=== PATIENT | female | born 1970 | race Caucasian/White ===

== ENCOUNTER 2018-08-06 10:18 | Outpatient (CLI) | payer OTHER ==
[2018-08-06 11:32] LABS: BASOPHILS # (AUTO) 0.1 X10'3 (0-0.2); EOSINOPHILS # (AUTO) 0.1 X10'3 (0-0.9); EOSINOPHILS % (AUTO) 1.5 % (0-6); HEMATOCRIT 38.9 % (35.0-45.0); HEMOGLOBIN 13.1 g/dl (12.0-16.0); LYMPHOCYTES # (AUTO) 1.8 X10'3 (1.1-4.8); LYMPHOCYTES % (AUTO) 23.7 % (21-51); MEAN CORPUSCULAR HEMOGLOBIN 31.2 PG (27.0-31.0); MEAN CORPUSCULAR HGB CONC 33.7 g/dL (33.0-36.5); MEAN CORPUSCULAR VOLUME 92.6 FL (78-98); MONOCYTES # (AUTO) 0.4 X10'3 (0-0.9); MONOCYTES % (AUTO) 5.4 % (2-12); NEUTROPHILS # (AUTO) 5.2 X10'3 (1.8-7.7); NEUTROPHILS % (AUTO) 68.4 % (42-75); PLATELET COUNT 359 X10'3 (140-440); RED CELL DISTRIBUTION WIDTH 12.8 % (11.5-14.5); WHITE BLOOD COUNT 7.6 X10'3 (4.5-11.0)
[2018-08-06 11:44] LABS: ALANINE AMINOTRANSFERASE 17 U/L (12-78); ALBUMIN 3.7 G/DL (3.4-5.0); ALKALINE PHOSPHATASE 49 IU/L (46-116); ANION GAP 7 (8-16); ASPARTATE AMINO TRANSFERASE 17 U/L (10-37); BILIRUBIN,TOTAL 0.6 MG/DL (0.1-1.0); BLOOD UREA NITROGEN 15 MG/DL (7-18); BUN/CREATININE RATIO 15.6 (6.6-38.0); CALCIUM 8.9 MG/DL (8.5-10.1); CHLORIDE 105 MMOL/L (99-107); CHOL/HDL RATIO 4.1 (0.00-4.99); CHOLESTEROL 172 MG/DL (0-200); CREATININE 0.96 MG/DL (0.40-0.90); GLUCOSE 96 MG/DL (70-104); HDL CHOLESTEROL 42 MG/DL (35-60); LDL CHOLESTEROL 120 MG/DL (50-100); POTASSIUM 4.2 MMOL/L (3.5-5.1); SODIUM 138 MMOL/L (135-145); TOTAL CARBON DIOXIDE 26.3 MMOL/L (24-32); TOTAL PROTEIN 7.4 G/DL (6.4-8.2); TRIGLYCERIDES 86 MG/DL (20-135); eGFR 62 ML/MIN
== END 2018-08-06 23:59 | disposition home or self-care (01) ==
LOC: LAB 10:18
PROVIDERS: ATTEND Nurse Practitioner
DX: Z00.00 Encounter for general adult medical examination without abnormal findings (principal); R10.9 Unspecified abdominal pain; E55.9 Vitamin D deficiency, unspecified; R63.5 Abnormal weight gain; Z87.891 Personal history of nicotine dependence
CPT/HCPCS: 36415; 80053; 80061; 82306; 84443; 85025

== ENCOUNTER 2018-08-20 10:37 | Outpatient (CLI) | payer OTHER | END 2018-08-20 23:59 | disposition home or self-care (01) | LOC: RAD 10:37 | PROVIDERS: ATTEND Nurse Practitioner | DX: R94.4 Abnormal results of kidney function studies (principal); R79.89 Other specified abnormal findings of blood chemistry | CPT/HCPCS: 76775 ==

== ENCOUNTER 2018-09-28 15:58 | Outpatient (CLI) | payer OTHER ==
[2018-09-28 16:37] LABS: BASOPHILS # (AUTO) 0.1 X10'3 (0-0.2); BASOPHILS % (AUTO) 0.8 % (0-1); EOSINOPHILS # (AUTO) 0.3 X10'3 (0-0.9); EOSINOPHILS % (AUTO) 2.7 % (0-6); HEMOGLOBIN 12.5 g/dl (12.0-16.0); LYMPHOCYTES # (AUTO) 2.5 X10'3 (1.1-4.8); LYMPHOCYTES % (AUTO) 25.5 % (21-51); MEAN CORPUSCULAR HEMOGLOBIN 31.4 PG (27.0-31.0); MEAN CORPUSCULAR HGB CONC 33.7 g/dL (33.0-36.5); MEAN CORPUSCULAR VOLUME 93.1 FL (78-98); MEAN PLATELET VOLUME 7.7 FL (7.4-10.4); MONOCYTES # (AUTO) 0.7 X10'3 (0-0.9); MONOCYTES % (AUTO) 7.1 % (2-12); NEUTROPHILS # (AUTO) 6.3 X10'3 (1.8-7.7); NEUTROPHILS % (AUTO) 63.9 % (42-75); PLATELET COUNT 351 X10'3 (140-440); RED BLOOD COUNT 3.97 X10'6 (4.20-5.60); RED CELL DISTRIBUTION WIDTH 13.1 % (11.5-14.5); WHITE BLOOD COUNT 9.9 X10'3 (4.5-11.0)
[2018-09-28 18:20] LABS: ALANINE AMINOTRANSFERASE 23 U/L (12-78); ALBUMIN 3.8 G/DL (3.4-5.0); ALBUMIN/GLOBULIN RATIO 1.1 (1.1-1.5); ALKALINE PHOSPHATASE 52 IU/L (46-116); ANION GAP 11 (8-16); ASPARTATE AMINO TRANSFERASE 22 U/L (10-37); BILIRUBIN,TOTAL 0.6 MG/DL (0.1-1.0); BLOOD UREA NITROGEN 17 MG/DL (7-18); CALCIUM 9.4 MG/DL (8.5-10.1); CHLORIDE 103 MMOL/L (99-107); CREATININE 1.06 MG/DL (0.40-0.90); GLUCOSE 101 MG/DL (70-104); POTASSIUM 3.8 MMOL/L (3.5-5.1); SODIUM 138 MMOL/L (135-145); TOTAL CARBON DIOXIDE 24.5 MMOL/L (24-32); TOTAL PROTEIN 7.3 G/DL (6.4-8.2); eGFR 56 ML/MIN
[2018-09-30 08:06] LABS: FSH, SERUM 6.6 mIU/mL (.); LUTEINIZING HORMONE 8.1 mIU/mL (.); PROLACTIN 34.3 ng/mL (4.8-23.3)
== END 2018-09-28 23:59 | disposition home or self-care (01) ==
LOC: LAB 15:58
PROVIDERS: ATTEND Obstetrics & Gynecology
DX: R10.2 Pelvic and perineal pain (principal); Z87.891 Personal history of nicotine dependence
CPT/HCPCS: 36415; 80053; 82670; 82679; 83001; 83002; 84146; 84439; 84443; 85025

== ENCOUNTER 2018-10-08 11:19 | Outpatient (CLI) | payer OTHER ==
[2018-10-08 11:52] LABS: BASOPHILS # (AUTO) 0.1 X10'3 (0-0.2); EOSINOPHILS # (AUTO) 0.2 X10'3 (0-0.9); EOSINOPHILS % (AUTO) 2.9 % (0-6); HEMATOCRIT 39.2 % (35.0-45.0); HEMOGLOBIN 13.3 g/dl (12.0-16.0); LYMPHOCYTES # (AUTO) 2.2 X10'3 (1.1-4.8); LYMPHOCYTES % (AUTO) 28.8 % (21-51); MEAN CORPUSCULAR HEMOGLOBIN 31.7 PG (27.0-31.0); MEAN CORPUSCULAR VOLUME 93.3 FL (78-98); MEAN PLATELET VOLUME 7.8 FL (7.4-10.4); MONOCYTES # (AUTO) 0.4 X10'3 (0-0.9); MONOCYTES % (AUTO) 5.6 % (2-12); NEUTROPHILS # (AUTO) 4.7 X10'3 (1.8-7.7); NEUTROPHILS % (AUTO) 61.7 % (42-75); PLATELET COUNT 430 X10'3 (140-440); WHITE BLOOD COUNT 7.7 X10'3 (4.5-11.0)
[2018-10-08 12:10] LABS: ALANINE AMINOTRANSFERASE 18 U/L (12-78); ALBUMIN/GLOBULIN RATIO 1.1 (1.1-1.5); ALKALINE PHOSPHATASE 50 IU/L (46-116); ANION GAP 7 (8-16); ASPARTATE AMINO TRANSFERASE 19 U/L (10-37); BILIRUBIN,TOTAL 0.5 MG/DL (0.1-1.0); BLOOD UREA NITROGEN 9 MG/DL (7-18); BUN/CREATININE RATIO 9.6 (6.6-38.0); CALCIUM 8.9 MG/DL (8.5-10.1); CHLORIDE 104 MMOL/L (99-107); CREATININE 0.94 MG/DL (0.40-0.90); GLUCOSE 97 MG/DL (70-104); POTASSIUM 3.8 MMOL/L (3.5-5.1); SODIUM 139 MMOL/L (135-145); TOTAL CARBON DIOXIDE 27.9 MMOL/L (24-32); TOTAL PROTEIN 7.7 G/DL (6.4-8.2); eGFR 64 ML/MIN
[2018-10-08 12:29] LABS: TOTAL PROTEIN,URINE RANDOM < 6.0 MG/DL
== END 2018-10-08 23:59 | disposition home or self-care (01) ==
LOC: LAB 11:19
PROVIDERS: ATTEND Internal Medicine
DX: N18.2 Chronic kidney disease, stage 2 (mild) (principal); D63.1 Anemia in chronic kidney disease; R80.9 Proteinuria, unspecified
CPT/HCPCS: 36415; 80053; 82570; 84156; 85025

== ENCOUNTER 2018-10-09 12:57 | Outpatient (CLI) | payer OTHER | END 2018-10-09 23:59 | disposition home or self-care (01) | LOC: RAD 12:57 | PROVIDERS: ATTEND Obstetrics & Gynecology | DX: N83.01 Follicular cyst of right ovary (principal) | CPT/HCPCS: 76830; 76856 ==

== ENCOUNTER 2018-10-30 10:55 | Outpatient (CLI) | payer OTHER ==
[2018-10-30 12:08] LABS: CLARITY,URINE CLEAR (Clear); COLOR,URINE STRAW (Yellow); GLUCOSE, URINE NEGATIVE (Neg); KETONES,URINE NEGATIVE (Neg); LEUKOCYTE ESTERASE ,URINE NEGATIVE (Neg); NITRITES, URINE NEGATIVE (Neg); OCCULT BLOOD,URINE TRACE-INTACT (Neg); PH,URINE 5.5 (4.8-8.0); PROTEIN,URINE NEGATIVE (Neg); UROBILINOGEN,URINE 0.2 E.U/dL (0.2-1.0)
[2018-10-30 12:10] LABS: UA COLLECTION TYPE CLN CATCH MIDSTREAM
[2018-10-30 12:22] LABS: % IRON SATURATION 23 % (11-46); IRON 95 UG/DL (49-151); TOTAL IRON BINDING CAPACITY 406 UG/DL (259-388)
[2018-10-30 12:23] LABS: SQUAMOUS EPITHELIAL CELL,UR FEW /LPF (FEW)
[2018-10-30 12:24] LABS: BACTERIA,URINE NONE SEEN /HPF (Neg); RBC,URINE 0-2 /HPF (0-2); WBC,URINE NONE SEEN /HPF (0-4)
[2018-10-30 12:25] LABS: TOTAL PROTEIN,URINE RANDOM < 6.0 MG/DL
[2018-10-30 12:35] LABS: FERRITIN 44 NG/ML (8-252)
[2018-10-31 18:18] LABS: ANTI-DSDNA ANTIBODIES <1 IU/mL (0-9); ANTINUCLEAR ANTIBODIES Negative (Negative)
[2018-11-01 07:16] LABS: COMPLEMENT C3, SERUM 146 mg/dL (82-167); COMPLEMENT C4, SERUM 26 mg/dL (14-44)
[2018-11-01 15:08] LABS: ATYPICAL PANCA <1:20 titer (Neg:<1:20); CYTOPLASMIC (C-ANCA) <1:20 titer (Neg:<1:20); PERINUCLEAR (P-ANCA) <1:20 titer (Neg:<1:20)
== END 2018-10-30 23:59 | disposition home or self-care (01) ==
LOC: VAS 10:55
PROVIDERS: ATTEND Internal Medicine
DX: N18.2 Chronic kidney disease, stage 2 (mild) (principal); E55.9 Vitamin D deficiency, unspecified; R76.0 Raised antibody titer; I77.6 Arteritis, unspecified; M06.9 Rheumatoid arthritis, unspecified; M32.10 Systemic lupus erythematosus, organ or system involvement unspecified; R82.90 Unspecified abnormal findings in urine; R80.9 Proteinuria, unspecified; Z87.891 Personal history of nicotine dependence
CPT/HCPCS: 81001; 82570; 82728; 83540; 83550; 84156; 86038; 86160; 86256; 93975

== ENCOUNTER 2019-01-07 09:42 | Outpatient (CLI) | payer OTHER | END 2019-01-07 23:59 | disposition home or self-care (01) | LOC: RAD 09:42 | PROVIDERS: ATTEND Family Medicine | DX: R10.9 Unspecified abdominal pain (principal); Z87.891 Personal history of nicotine dependence | CPT/HCPCS: 76700 ==

== ENCOUNTER 2019-01-22 08:53 | Outpatient (CLI) | payer OTHER ==
[~2019-01-22] VITALS: Ht 165.1 cm; Wt 94.1 kg
[2019-01-22] MEDS ORDERED: NORMAL SALINE IV ONE (09:45)
[2019-01-22] MEDS ORDERED: SINCALIDE IV ONE (09:45)
== END 2019-01-22 23:59 | disposition home or self-care (01) ==
LOC: RAD 08:53
PROVIDERS: ATTEND Family Medicine
DX: R10.9 Unspecified abdominal pain (principal); Z87.891 Personal history of nicotine dependence
CPT/HCPCS: 78227; A9537; J2805

== ENCOUNTER 2019-02-25 12:46 | Day surgery (SDC) | payer OTHER ==
[~2019-02-25] VITALS: Ht 175.3 cm; Wt 94.1 kg
[2019-02-25] MEDS ORDERED: MIDAZolam 5mg/5ml vial ONE ×3 (12:58→13:02)
[2019-02-25] MEDS ORDERED: fentaNYL/PF 50MCG/1 ML 2ML syringe ONE ×2 (12:58→14:03)
[2019-02-25] MEDS ORDERED: LIDOcaine Viscous 15ml cup ONE (12:59)
[2019-02-25 13:00] VITALS: BP 142/86
[2019-02-25 14:24] VITALS: BP 115/70
[2019-02-25 14:29] VITALS: BP 112/66
[2019-02-25] MEDS ORDERED: NO HOME MEDS (14:32)
[2019-02-25 14:39] VITALS: BP 111/57
[2019-02-25 14:49] VITALS: BP 120/72
== END 2019-02-25 15:05 | disposition home or self-care (01) ==
LOC: GI LAB 12:46
PROVIDERS: ATTEND Internal Medicine Gastroenterology
DX: K63.5 Polyp of colon (principal); K64.8 Other hemorrhoids; K22.8 Other specified diseases of esophagus; K29.50 Unspecified chronic gastritis without bleeding; K20.8 Other esophagitis
CPT/HCPCS: 43239; 45385; 99152; 99153; C1773; J2250; J3010; J7040; A4620

== ENCOUNTER 2019-03-20 15:47 | Outpatient (CLI) | payer OTHER ==
[~2019-03-20 15:47] MED LIST: NO HOME MEDS
[2019-03-20 19:14] LABS: BASOPHILS # (AUTO) 0.1 X10'3 (0-0.2); BASOPHILS % (AUTO) 0.9 % (0-1); EOSINOPHILS # (AUTO) 0.3 X10'3 (0-0.9); EOSINOPHILS % (AUTO) 2.6 % (0-6); HEMATOCRIT 38.3 % (35.0-45.0); HEMOGLOBIN 12.9 g/dl (12.0-16.0); LYMPHOCYTES # (AUTO) 3.4 X10'3 (1.1-4.8); LYMPHOCYTES % (AUTO) 27.4 % (21-51); MEAN CORPUSCULAR HEMOGLOBIN 31.2 PG (27.0-31.0); MEAN CORPUSCULAR HGB CONC 33.6 g/dL (33.0-36.5); MEAN CORPUSCULAR VOLUME 92.9 FL (78-98); MEAN PLATELET VOLUME 7.7 FL (7.4-10.4); MONOCYTES # (AUTO) 0.6 X10'3 (0-0.9); NEUTROPHILS % (AUTO) 64.1 % (42-75); PLATELET COUNT 421 X10'3 (140-440); RED BLOOD COUNT 4.12 X10'6 (4.20-5.60); RED CELL DISTRIBUTION WIDTH 12.6 % (11.5-14.5); WHITE BLOOD COUNT 12.5 X10'3 (4.5-11.0)
[2019-03-20 19:27] LABS: ANION GAP 8 (8-16); BLOOD UREA NITROGEN 14 MG/DL (7-18); BUN/CREATININE RATIO 14.3 (6.6-38.0); CALCIUM 10.2 MG/DL (8.5-10.1); CHLORIDE 102 MMOL/L (99-107); CREATININE 0.98 MG/DL (0.40-0.90); GLUCOSE 108 MG/DL (70-104); PHOSPHORUS 5.3 MG/DL (2.3-4.5); POTASSIUM 3.8 MMOL/L (3.5-5.1); SODIUM 138 MMOL/L (135-145); eGFR 61 ML/MIN
[2019-03-25 13:20] LABS: VITAMIN D, 1,25 DIHYDROXY 43.4 pg/mL (19.9-79.3)
== END 2019-03-20 23:59 | disposition home or self-care (01) ==
LOC: LAB 15:47
PROVIDERS: ATTEND Internal Medicine Critical Care Medicine
DX: R82.79 Other abnormal findings on microbiological examination of urine (principal); R94.4 Abnormal results of kidney function studies; R80.9 Proteinuria, unspecified; E55.9 Vitamin D deficiency, unspecified; D63.1 Anemia in chronic kidney disease; N18.2 Chronic kidney disease, stage 2 (mild)
CPT/HCPCS: 36415; 80069; 82043; 82570; 82652; 85025

== ENCOUNTER 2020-01-02 12:24 | Outpatient (CLI) | payer BC ==
[2020-01-02 12:56] LABS: BASOPHILS # (AUTO) 0.1 X10'3 (0-0.2); BASOPHILS % (AUTO) 1.1 % (0-1); EOSINOPHILS # (AUTO) 0.2 X10'3 (0-0.9); EOSINOPHILS % (AUTO) 2.6 % (0-6); HEMATOCRIT 37.3 % (35.0-45.0); HEMOGLOBIN 12.6 g/dl (12.0-16.0); LYMPHOCYTES # (AUTO) 2.6 X10'3 (1.1-4.8); LYMPHOCYTES % (AUTO) 32.4 % (21-51); MEAN CORPUSCULAR HEMOGLOBIN 31.5 PG (27.0-31.0); MEAN CORPUSCULAR HGB CONC 33.9 g/dL (33.0-36.5); MEAN CORPUSCULAR VOLUME 92.9 FL (78-98); MEAN PLATELET VOLUME 7.3 FL (7.4-10.4); MONOCYTES # (AUTO) 0.5 X10'3 (0-0.9); MONOCYTES % (AUTO) 5.7 % (2-12); NEUTROPHILS # (AUTO) 4.7 X10'3 (1.8-7.7); NEUTROPHILS % (AUTO) 58.2 % (42-75); PLATELET COUNT 468 X10'3 (140-440); RED BLOOD COUNT 4.02 X10'6 (4.20-5.60); RED CELL DISTRIBUTION WIDTH 12.9 % (11.5-14.5)
[2020-01-02 12:59] LABS: CLARITY,URINE CLEAR (Clear); COLOR,URINE YELLOW (Yellow); GLUCOSE, URINE NEGATIVE (Neg); KETONES,URINE NEGATIVE (Neg); LEUKOCYTE ESTERASE ,URINE NEGATIVE (Neg); NITRITES, URINE NEGATIVE (Neg); OCCULT BLOOD,URINE NEGATIVE (Neg); PH,URINE 5.5 (4.8-8.0); PROTEIN,URINE NEGATIVE (Neg); UROBILINOGEN,URINE 0.2 E.U/dL (0.2-1.0)
[2020-01-02 13:03] LABS: UA COLLECTION TYPE CLN CATCH MIDSTREAM
[2020-01-02 13:19] LABS: ALANINE AMINOTRANSFERASE 20 U/L (12-78); ALBUMIN 3.8 G/DL (3.4-5.0); ALKALINE PHOSPHATASE 50 IU/L (46-116); ANION GAP 7 (8-16); ASPARTATE AMINO TRANSFERASE 19 U/L (10-37); BILIRUBIN,TOTAL 0.4 MG/DL (0.1-1.0); BLOOD UREA NITROGEN 14 MG/DL (7-18); CALCIUM 8.9 MG/DL (8.5-10.1); CHLORIDE 103 MMOL/L (99-107); CREATININE 1.08 MG/DL (0.40-0.90); GLUCOSE 94 MG/DL (70-104); POTASSIUM 3.9 MMOL/L (3.5-5.1); SODIUM 137 MMOL/L (135-145); TOTAL PROTEIN 7.5 G/DL (6.4-8.2); eGFR 54 ML/MIN
== END 2020-01-02 23:59 | disposition home or self-care (01) ==
LOC: LAB 12:24
PROVIDERS: ATTEND Family Medicine
DX: D64.9 Anemia, unspecified (principal); E22.1 Hyperprolactinemia; N28.9 Disorder of kidney and ureter, unspecified; R10.9 Unspecified abdominal pain
CPT/HCPCS: 36415; 80053; 81003; 84439; 84443; 85025

== ENCOUNTER 2020-01-14 10:07 | Outpatient (CLI) | payer BC ==
[~2020-01-14] VITALS: Ht 165.1 cm; Wt 90.9 kg
[2020-01-14] MEDS ORDERED: NORMAL SALINE IV ONE (11:45)
[2020-01-14] MEDS ORDERED: SINCALIDE IV ONE (11:45)
== END 2020-01-14 23:59 | disposition home or self-care (01) ==
LOC: RAD 10:07
PROVIDERS: ATTEND Family Medicine
DX: K83.5 Biliary cyst (principal)
CPT/HCPCS: 78227; A9537; J2805

== ENCOUNTER → 2020-03-17 | Outpatient (CLI) | payer BC ==
[2020-03-17 12:38] LABS: BASOPHILS # (AUTO) 0.1 X10'3 (0-0.2); BASOPHILS % (AUTO) 0.9 % (0-1); EOSINOPHILS # (AUTO) 0.2 X10'3 (0-0.9); EOSINOPHILS % (AUTO) 2.3 % (0-6); HEMOGLOBIN 13.3 g/dl (12.0-16.0); LYMPHOCYTES # (AUTO) 2.1 X10'3 (1.1-4.8); LYMPHOCYTES % (AUTO) 23.9 % (21-51); MEAN CORPUSCULAR HEMOGLOBIN 30.9 PG (27.0-31.0); MEAN CORPUSCULAR HGB CONC 33.2 g/dL (33.0-36.5); MEAN CORPUSCULAR VOLUME 93.1 FL (78-98); MEAN PLATELET VOLUME 7.9 FL (7.4-10.4); MONOCYTES # (AUTO) 0.4 X10'3 (0-0.9); NEUTROPHILS # (AUTO) 5.9 X10'3 (1.8-7.7); NEUTROPHILS % (AUTO) 67.9 % (42-75); PLATELET COUNT 447 X10'3 (140-440); WHITE BLOOD COUNT 8.7 X10'3 (4.5-11.0)
[2020-03-17 12:46] LABS: ANION GAP 6 (8-16); BLOOD UREA NITROGEN 14 MG/DL (7-18); BUN/CREATININE RATIO 14.3 (6.6-38.0); CALCIUM 9.2 MG/DL (8.5-10.1); CHLORIDE 104 MMOL/L (99-107); CREATININE 0.98 MG/DL (0.40-0.90); GLUCOSE 99 MG/DL (70-104); PHOSPHORUS 3.8 MG/DL (2.3-4.5); POTASSIUM 4.1 MMOL/L (3.5-5.1); SODIUM 136 MMOL/L (135-145); TOTAL CARBON DIOXIDE 26.3 MMOL/L (24-32); eGFR 60 ML/MIN
[2020-03-17 13:54] LABS: TOTAL PROTEIN,URINE RANDOM < 6.0 MG/DL
[2020-03-18 12:01] LABS: MICROALB/CRT, RATIO <6 mg/g creat (0-29)
== END | disposition home or self-care (01) ==
LOC: LAB 11:39
PROVIDERS: ATTEND Internal Medicine Critical Care Medicine
DX: E11.22 Type 2 diabetes mellitus with diabetic chronic kidney disease (principal); D63.1 Anemia in chronic kidney disease; N18.2 Chronic kidney disease, stage 2 (mild); E83.52 Hypercalcemia; E83.30 Disorder of phosphorus metabolism, unspecified; R94.4 Abnormal results of kidney function studies; R80.9 Proteinuria, unspecified; R82.79 Other abnormal findings on microbiological examination of urine
CPT/HCPCS: 36415; 80069; 82043; 82306; 82570; 83970; 84156; 85025

== ENCOUNTER 2020-05-06 07:27 | Outpatient (CLI) | payer BC | END 2020-05-06 23:59 | disposition home or self-care (01) | LOC: RAD 07:27 | PROVIDERS: ATTEND Internal Medicine Critical Care Medicine | DX: N18.2 Chronic kidney disease, stage 2 (mild) (principal); R93.41 Abnormal radiologic findings on diagnostic imaging of renal pelvis, ureter, or bladder | CPT/HCPCS: 76775 ==

== ENCOUNTER 2020-05-14 12:13 | Outpatient (CLI) | payer BC | END 2020-05-14 23:59 | disposition home or self-care (01) | LOC: RAD 12:13 | PROVIDERS: ATTEND Family Medicine | DX: M77.31 Calcaneal spur, right foot (principal) | CPT/HCPCS: 73610; 73630 ==

== ENCOUNTER → 2020-05-20 | Outpatient (CLI) | payer BC | END | disposition home or self-care (01) | LOC: VAS 07:47 | PROVIDERS: ATTEND Internal Medicine Gastroenterology | DX: R10.9 Unspecified abdominal pain (principal) | CPT/HCPCS: 76700; 93975 ==

== ENCOUNTER 2020-07-10 11:35 | Outpatient (CLI) | payer BC ==
[2020-07-10 12:18] LABS: ALBUMIN 3.8 G/DL (3.4-5.0); ANION GAP 7 (8-16); BLOOD UREA NITROGEN 13 MG/DL (7-18); BUN/CREATININE RATIO 13.8 (6.6-38.0); CALCIUM 8.9 MG/DL (8.5-10.1); CHLORIDE 104 MMOL/L (99-107); CREATININE 0.94 MG/DL (0.40-0.90); GLUCOSE 98 MG/DL (70-104); POTASSIUM 4.3 MMOL/L (3.5-5.1); SODIUM 138 MMOL/L (135-145); eGFR 63 ML/MIN
== END 2020-07-10 23:59 | disposition home or self-care (01) ==
LOC: LAB 11:35
PROVIDERS: ATTEND Family Medicine
DX: N28.9 Disorder of kidney and ureter, unspecified (principal)
CPT/HCPCS: 36415; 80048

== ENCOUNTER 2020-08-03 08:47 | Outpatient (CLI) | payer BC ==
[2020-08-03] MEDS ORDERED: iohexol 300mg/ml 100ml inj. ONE (09:16)
== END 2020-08-03 23:59 | disposition home or self-care (01) ==
LOC: 64 CT 08:47
PROVIDERS: ATTEND Family Medicine
DX: N28.89 Other specified disorders of kidney and ureter (principal)
CPT/HCPCS: 74178; Q9967

== ENCOUNTER 2021-03-05 08:08 | Outpatient (CLI) | payer BC | END 2021-03-05 23:59 | disposition home or self-care (01) | LOC: LAB 08:08 | PROVIDERS: ATTEND Family Medicine | DX: R10.2 Pelvic and perineal pain (principal); Z53.21 Procedure and treatment not carried out due to patient leaving prior to being seen by health care provider ==

== ENCOUNTER 2021-03-18 07:30 | Outpatient (CLI) | payer BC ==
[2021-03-18 08:22] LABS: BASOPHILS # (AUTO) 0.1 X10'3 (0-0.2); BASOPHILS % (AUTO) 0.9 % (0-1); EOSINOPHILS # (AUTO) 0.2 X10'3 (0-0.9); EOSINOPHILS % (AUTO) 2.5 % (0-6); HEMATOCRIT 36.4 % (35.0-45.0); HEMOGLOBIN 12.5 g/dl (12.0-16.0); LYMPHOCYTES # (AUTO) 1.9 X10'3 (1.1-4.8); MEAN CORPUSCULAR HEMOGLOBIN 31.4 PG (27.0-31.0); MEAN CORPUSCULAR HGB CONC 34.4 g/dL (33.0-36.5); MEAN CORPUSCULAR VOLUME 91.3 FL (78-98); MEAN PLATELET VOLUME 7.7 FL (7.4-10.4); MONOCYTES # (AUTO) 0.4 X10'3 (0-0.9); MONOCYTES % (AUTO) 5.7 % (2-12); NEUTROPHILS # (AUTO) 4.6 X10'3 (1.8-7.7); NEUTROPHILS % (AUTO) 63.9 % (42-75); PLATELET COUNT 364 X10'3 (140-440); RED BLOOD COUNT 3.98 X10'6 (4.20-5.60); RED CELL DISTRIBUTION WIDTH 12.8 % (11.5-14.5); WHITE BLOOD COUNT 7.1 X10'3 (4.5-11.0)
[2021-03-18 08:47] LABS: ALANINE AMINOTRANSFERASE 21 U/L (12-78); ALBUMIN 3.6 G/DL (3.4-5.0); ALBUMIN/GLOBULIN RATIO 0.9 (1.1-1.5); ALKALINE PHOSPHATASE 61 IU/L (46-116); ANION GAP 10 (8-16); ASPARTATE AMINO TRANSFERASE 14 U/L (10-37); BILIRUBIN,TOTAL 0.5 MG/DL (0.1-1.0); BLOOD UREA NITROGEN 12 MG/DL (7-18); BUN/CREATININE RATIO 13.5 (6.6-38.0); C-REACTIVE PROTEIN 0.17 MG/DL (0.0-0.5); CALCIUM 8.7 MG/DL (8.5-10.1); CHLORIDE 106 MMOL/L (99-107); CHOL/HDL RATIO 4.1 (0.00-4.99); CHOLESTEROL 169 MG/DL (0-200); CREATININE 0.89 MG/DL (0.40-0.90); GLUCOSE 97 MG/DL (70-104); HDL CHOLESTEROL 41 MG/DL (35-60); LDL CHOLESTEROL 104 MG/DL (50-100); POTASSIUM 4.2 MMOL/L (3.5-5.1); SODIUM 140 MMOL/L (135-145); TOTAL CARBON DIOXIDE 23.8 MMOL/L (24-32); TOTAL PROTEIN 7.4 G/DL (6.4-8.2); TRIGLYCERIDES 240 MG/DL (20-135); eGFR 67 ML/MIN
== END 2021-03-18 23:59 | disposition home or self-care (01) ==
LOC: LAB 07:30
PROVIDERS: ATTEND Family Medicine
DX: Z00.01 Encounter for general adult medical examination with abnormal findings (principal); E78.5 Hyperlipidemia, unspecified; E78.6 Lipoprotein deficiency; R10.2 Pelvic and perineal pain; R10.11 Right upper quadrant pain; N89.8 Other specified noninflammatory disorders of vagina
CPT/HCPCS: 36415; 80053; 80061; 84439; 84443; 85025; 85651; 86140

== ENCOUNTER 2021-08-27 07:19 | Outpatient (CLI) | payer BC | END 2021-08-27 23:59 | disposition home or self-care (01) | LOC: RAD 07:19 | PROVIDERS: ATTEND Physician Assistant | DX: N88.8 Other specified noninflammatory disorders of cervix uteri (principal); N92.0 Excessive and frequent menstruation with regular cycle | CPT/HCPCS: 76830; 76856; 93976 ==

== ENCOUNTER 2021-08-31 12:41 | Outpatient (CLI) | payer BC | END 2021-08-31 23:59 | disposition home or self-care (01) | LOC: 64 CT 12:41 | PROVIDERS: ATTEND Physician Assistant | DX: N20.0 Calculus of kidney (principal); D17.71 Benign lipomatous neoplasm of kidney | CPT/HCPCS: 74176 ==

== ENCOUNTER 2021-10-01 21:39 | Emergency (ER) | payer BC ==
[~2021-10-01] VITALS: Ht 162.6 cm; Wt 93.2 kg
[2021-10-01] MEDS ORDERED: ondansetron 4mg rapidly disintigrating tab PO ONE (23:20)
[2021-10-01] MEDS ORDERED: HYDROcodone/acetaminophen 5mg/325mg tablet PO ONE ×2 (23:20→23:40)
[2021-10-01] MEDS ORDERED: ketorolac trometh inj. 60 MG/2 ML VIAL IM ONE (23:20)
[2021-10-01] MEDS ORDERED: HYDR-3965 PO (23:40)
[2021-10-02 00:07] VITALS: BP 124/78
== END 2021-10-02 00:09 | disposition home or self-care (01) ==
LOC: ER 21:40
DX: S82.202A Unspecified fracture of shaft of left tibia, initial encounter for closed fracture (principal); S82.402A Unspecified fracture of shaft of left fibula, initial encounter for closed fracture; X58.XXXA Exposure to other specified factors, initial encounter; Y93.89 Activity, other specified; Y92.89 Other specified places as the place of occurrence of the external cause; Y99.8 Other external cause status
CPT/HCPCS: 29515; 73610; 96372; 99284; J1885

== ENCOUNTER 2021-10-06 15:45 | Emergency (ER) | payer BC ==
[~2021-10-06] VITALS: Ht 165.1 cm; Wt 93.2 kg
[~2021-10-06 15:45] MED LIST changes: +HYDR-3965 PO
[2021-10-06 16:09] VITALS: BP 138/89
== END 2021-10-06 18:15 | disposition home or self-care (01) ==
LOC: EEVIPCON 15:45 → ER 15:45
DX: L89.621 Pressure ulcer of left heel, stage 1 (principal); S82.202D Unspecified fracture of shaft of left tibia, subsequent encounter for closed fracture with routine healing; Z87.81 Personal history of (healed) traumatic fracture; Z79.899 Other long term (current) drug therapy; X58.XXXD Exposure to other specified factors, subsequent encounter
CPT/HCPCS: 99284

== ENCOUNTER 2021-10-22 05:14 | Day surgery (SDC) | payer BC ==
[2021-10-15 15:18] LABS: BASOPHILS # (AUTO) 0.1 X10'3 (0-0.2); EOSINOPHILS # (AUTO) 0.1 X10'3 (0-0.9); EOSINOPHILS % (AUTO) 1.7 % (0-6); LYMPHOCYTES # (AUTO) 2.2 X10'3 (1.1-4.8); LYMPHOCYTES % (AUTO) 29.4 % (21-51); MEAN CORPUSCULAR HEMOGLOBIN 30.4 PG (27.0-31.0); MEAN CORPUSCULAR HGB CONC 33.1 g/dL (33.0-36.5); MEAN PLATELET VOLUME 7.5 FL (7.4-10.4); MONOCYTES # (AUTO) 0.4 X10'3 (0-0.9); MONOCYTES % (AUTO) 5.7 % (2-12); NEUTROPHILS # (AUTO) 4.7 X10'3 (1.8-7.7); NEUTROPHILS % (AUTO) 62.2 % (42-75); PRE OP HEMOGLOBIN 13.2 g/dL (12.0-16.0); PRE OP PLATELET COUNT 532 X10'3 (140-440); RED BLOOD COUNT 4.34 X10'6 (4.20-5.60); RED CELL DISTRIBUTION WIDTH 13.8 % (11.5-14.5)
[2021-10-15 15:22] LABS: CLARITY,URINE CLEAR (Clear); COLOR,URINE YELLOW (Yellow); GLUCOSE, URINE NEGATIVE (Neg); KETONES,URINE TRACE mg/dl (Neg); LEUKOCYTE ESTERASE ,URINE NEGATIVE (Neg); NITRITES, URINE NEGATIVE (Neg); OCCULT BLOOD,URINE TRACE-INTACT (Neg); PH,URINE 5.5 (4.8-8.0); PROTEIN,URINE NEGATIVE (Neg); UA COLLECTION TYPE CLN CATCH MIDSTREAM; UROBILINOGEN,URINE 0.2 E.U/dL (0.2-1.0)
[2021-10-15 15:25] LABS: ALBUMIN 3.7 G/DL (3.4-5.0); ALBUMIN/GLOBULIN RATIO 0.9 (1.1-1.5); ALKALINE PHOSPHATASE 54 IU/L (46-116); BLOOD UREA NITROGEN 15 MG/DL (7-18); BUN/CREATININE RATIO 15.6 (6.6-38.0); CALCIUM 8.9 MG/DL (8.5-10.1); CHLORIDE 102 MMOL/L (99-107); CREATININE 0.96 MG/DL (0.40-0.90); PRE OP ALT 27 U/L (30-65); PRE OP ANION GAP 9 (8-16); PRE OP AST 29 U/L (10-37); PRE OP BILIRUB, TOTAL 0.6 MG/DL (0.0-1.0); PRE OP GLUCOSE 101 MG/DL (70-104); PRE OP POTASSIUM 3.7 MMOL/L (3.4-5.1); PRE OP SODIUM 137 MMOL/L (135-145); TOTAL CARBON DIOXIDE 26.4 MMOL/L (24-32); TOTAL PROTEIN 7.7 G/DL (6.4-8.2); eGFR 62 ML/MIN
[2021-10-15 15:30] LABS: BACTERIA,URINE NONE SEEN /HPF (Neg); MUCUS STRANDS NONE SEEN /LPF (Neg); RBC,URINE NONE SEEN /HPF (0-2); SQUAMOUS EPITHELIAL CELL,UR FEW /LPF (FEW); WBC,URINE 0-4 /HPF (0-4)
[2021-10-22] VITALS (12 sets, daily range): BP systolic 124–159; BP diastolic 74–89
[~2021-10-22] VITALS: Ht 165.1 cm; Wt 90.1 kg
[~2021-10-22 05:14] MED LIST changes: +CHOL20004 PO; +HYDR-3964 PO; -HYDR-3965 PO; +LACT1CAP65 PO; +MULT-1085 PO; -NO HOME MEDS; +TUMERIC; +ringers solution, lacted 1,000 ML IV SCH
[2021-10-22] MEDS ORDERED: ceFAZolin inj. 2,000 MG in dextrose 5%-water 100 ML IV ONE (05:30)
[2021-10-22] MEDS ORDERED: famotidine 20mg tablet PO ONE (05:30)
[2021-10-22] MEDS ORDERED: bacitracin 15gm ointment TP ONE (06:45)
[2021-10-22] MEDS ORDERED: BUPIVAcaine 0.5% inj/PF 30 ML ONE (06:45)
[2021-10-22] MEDS ORDERED: cloNIDine hcl/PF 100mcg/ml inj ONE (07:13)
[2021-10-22] MEDS ORDERED: fentaNYL/PF 50MCG/1 ML 2ML syringe ONE ×2 (07:14→08:10)
[2021-10-22] MEDS ORDERED: sevoflurane 250ml liquid IH ONE (07:15)
[2021-10-22] MEDS ORDERED: midazolam 1 mg/ML 2ml injection ONE ×2 (07:15)
[2021-10-22] MEDS ORDERED: ROPIVAcaine 0.2%/PF PUMP/bolus 545 ML POPLITEAL SCH (08:15)
[2021-10-22] MEDS ORDERED: meperidine/PF 25mg/ml syringe IV PRN ×3 (08:15)
[2021-10-22] MEDS ORDERED: proCHLORperazine 10 MG/2 ml inj IV PRN (08:15)
[2021-10-22] MEDS ORDERED: ondansetron/PF 4mg/2ml inj IV PRN (08:15)
[2021-10-22] MEDS ORDERED: ROPIVAcaine 0.2% (10 MG/5 ML) BOLUS INJECTION POPLITEAL PRN (08:15)
[2021-10-22] MEDS ORDERED: ringers solution, lacted 1,000 ML IV SCH (08:15)
[2021-10-22] MEDS ORDERED: morphine 2 MG/ML inj. syringe IV PRN (08:15)
[2021-10-22] MEDS ORDERED: BUPIVAcaine 0.5% inj/PF 30 ml vial IJ ONE (08:30)
[2021-10-22] MEDS ORDERED: neostigmine methylsulfate 1 MG/ML 10ml vial ONE (09:07)
[2021-10-22] MEDS ORDERED: rocuronium 10mg/ml inj IV ONE (09:07)
[2021-10-22] MEDS ORDERED: ondansetron/PF 4mg/2ml inj ONE (09:07)
[2021-10-22] MEDS ORDERED: propofol inj 20 ML IV ONE (09:07)
[2021-10-22] MEDS ORDERED: ROPIVAcaine 0.5% (5mg/ml) 30ml vial ONE (09:07)
[2021-10-22] MEDS ORDERED: acetaminophen 1,000mg/100ml IV 100 ML IV ONE (09:07)
[2021-10-22] MEDS ORDERED: dexamethasone sod phosphate 4mg/ml inj. ONE (09:07)
[2021-10-22] MEDS ORDERED: glycopyrrolate 0.2mg/ml inj ONE (09:07)
[2021-10-22] MEDS ORDERED: meperidine/PF 25mg/ml syringe ONE (09:23)
--- NOTE | 2021-10-22 09:36 | NUR ---
Received from OR via [facility] , accompanied by Anesthesiologist MAXIMILIAN and report given by Anesthesiolgist. PATIENT MOANING UNCONTROLLABLY UPON ARRIVAL. VSS. PATIENT MEDICATED UPON ARRIVAL . WILL CONTINUE TO ASSESS. PATIENT WITH SPLINT TO LEFT LE. ELEVATED AND GATCHED. PIV IN LEFT HAND RUNNING LR AT 100. Addendum: 10/22/21 at 0946 by Elder Dalton RN, RN Amended: Links added.
[2021-10-22] MEDS: morphine 4 MG/ML inj SYRINge IV PRN ×2 (09:48→09:58)
[2021-10-22] MEDS ORDERED: LORazepam 2 mg/ml vial ONE (10:03)
[2021-10-22] MEDS ORDERED: fentaNYL/PF 50MCG/1 ML 2ML syringe IV PRN ×2 (10:30)
[2021-10-22] MEDS ORDERED: HYDROmorphone/PF 0.2 MG/ML SYRINGE IV PRN ×2 (10:30)
--- NOTE | 2021-10-22 11:46 | NUR ---
ALL CRITERIA FOR DC HOME HAS BEEN ACHIEVED. VSS. PAIN AT A TOLERABLE LEVEL , ON Q PUMP EXPLAINED AND EDUCATIONAL PAPERWORK GIVEN TO PATIENT. PATIENT UNDERSTOOD ALL DC INFORMATION AND A LARGE FOAM WEDGE WAS ALSO PROVIDED. INSTRUCTED SPOUSE ON USAGE AND IMPORTANCE OF ELEVATION. PATIENT HAS PAIN MEDS AT HOME ALREADY. ENCOURAGED PATIENT TO TAKE MEDS NEEDED. PATIENT UNDERSTOOD ALL INSTRUCTIONS. Addendum: 10/22/21 at 1215 by Elder Dalton RN, RN Amended: Links added.
== END 2021-10-22 11:46 | disposition home or self-care (01) ==
LOC: PAS 05:14
PROVIDERS: ATTEND Podiatrist Foot & Ankle Surgery
DX: S82.842A Displaced bimalleolar fracture of left lower leg, initial encounter for closed fracture (principal); J45.909 Unspecified asthma, uncomplicated; G43.909 Migraine, unspecified, not intractable, without status migrainosus; N18.2 Chronic kidney disease, stage 2 (mild); E66.9 Obesity, unspecified; Z68.34 Body mass index [BMI] 34.0-34.9, adult; G89.18 Other acute postprocedural pain; Z87.442 Personal history of urinary calculi; Z98.890 Other specified postprocedural states; Z98.51 Tubal ligation status; Z72.89 Other problems related to lifestyle; Z79.82 Long term (current) use of aspirin; Z79.899 Other long term (current) drug therapy; Z87.891 Personal history of nicotine dependence; Z20.822 Contact with and (suspected) exposure to COVID-19; X50.1XXA Overexertion from prolonged static or awkward postures, initial encounter; Y93.89 Activity, other specified; Y92.89 Other specified places as the place of occurrence of the external cause; Y99.8 Other external cause status
CPT/HCPCS: 27814; 36415; 64446; 64447; 73600; 76000; 76942; 80053; 81001; 82948; 85025; 93005; A6223; C1713; J0131; J0690; J0735; J1100; J1170; J2060; J2175; J2250; J2270; J2405; J2704; J2710; J2795; J3010; J3490; J7030; J7060; J7120; S0020; U0003; U0005; Z7506; Z7508; Z7512; A4618; A6253; A6449; A7000

== ENCOUNTER 2022-10-12 10:11 | Outpatient (CLI) | payer BC ==
[~2022-10-12 10:11] MED LIST changes: -ringers solution, lacted 1,000 ML IV SCH
[2022-10-12 10:41] LABS: CLARITY,URINE CLEAR (Clear); COLOR,URINE STRAW (Yellow); GLUCOSE, URINE NEGATIVE (Neg); KETONES,URINE NEGATIVE (Neg); LEUKOCYTE ESTERASE ,URINE NEGATIVE (Neg); NITRITES, URINE NEGATIVE (Neg); OCCULT BLOOD,URINE NEGATIVE (Neg); PROTEIN,URINE NEGATIVE (Neg); UROBILINOGEN,URINE 0.2 E.U/dL (0.2-1.0)
[2022-10-12 10:42] LABS: BASOPHILS # (AUTO) 0.1 X10'3 (0-0.2); BASOPHILS % (AUTO) 1.3 % (0-1); EOSINOPHILS # (AUTO) 0.2 X10'3 (0-0.9); EOSINOPHILS % (AUTO) 3.7 % (0-6); HEMATOCRIT 39.6 % (35.0-45.0); HEMOGLOBIN 13.3 g/dl (12.0-16.0); LYMPHOCYTES # (AUTO) 1.9 X10'3 (1.1-4.8); LYMPHOCYTES % (AUTO) 30.6 % (21-51); MEAN CORPUSCULAR HEMOGLOBIN 31.2 PG (27.0-31.0); MEAN CORPUSCULAR HGB CONC 33.6 g/dL (33.0-36.5); MEAN PLATELET VOLUME 7.5 FL (7.4-10.4); MONOCYTES # (AUTO) 0.4 X10'3 (0-0.9); MONOCYTES % (AUTO) 6.4 % (2-12); NEUTROPHILS # (AUTO) 3.5 X10'3 (1.8-7.7); PLATELET COUNT 406 X10'3 (140-440); RED BLOOD COUNT 4.26 X10'6 (4.20-5.60); RED CELL DISTRIBUTION WIDTH 13.4 % (11.5-14.5); WHITE BLOOD COUNT 6.1 X10'3 (4.5-11.0)
[2022-10-12 10:50] LABS: UA COLLECTION TYPE CLN CATCH MIDSTREAM
[2022-10-12 11:02] LABS: ALANINE AMINOTRANSFERASE 18 U/L (12-78); ALKALINE PHOSPHATASE 46 IU/L (46-116); AMYLASE 78 U/L (25-115); ANION GAP 9 (8-16); ASPARTATE AMINO TRANSFERASE 16 U/L (10-37); BILIRUBIN,TOTAL 0.6 MG/DL (0.1-1.0); BLOOD UREA NITROGEN 13 MG/DL (7-18); BUN/CREATININE RATIO 13.7 (10.0-20.0); CALCIUM 9.1 MG/DL (8.5-10.1); CHLORIDE 102 MMOL/L (99-107); CREATININE 0.95 MG/DL (0.40-0.90); GLUCOSE 98 MG/DL (70-104); LIPASE 101 U/L (73-393); POTASSIUM 4.2 MMOL/L (3.5-5.1); SODIUM 137 MMOL/L (135-145); TOTAL CARBON DIOXIDE 26.4 MMOL/L (24-32); TOTAL PROTEIN 8.1 G/DL (6.4-8.2); eGFR 62 ML/MIN
== END 2022-10-12 23:59 | disposition home or self-care (01) ==
LOC: LAB 10:11
PROVIDERS: ATTEND Nurse Practitioner
DX: N93.8 Other specified abnormal uterine and vaginal bleeding (principal); R10.9 Unspecified abdominal pain; R11.0 Nausea; Z87.442 Personal history of urinary calculi
CPT/HCPCS: 36415; 80053; 81003; 82150; 83690; 84439; 84443; 85025

== ENCOUNTER 2022-10-18 07:53 | Outpatient (CLI) | payer BC ==
[2022-10-18] MEDS ORDERED: iohexol 300mg/ml 100ml inj. ONE (09:19)
== END 2022-10-18 23:59 | disposition home or self-care (01) ==
LOC: RAD 07:53
PROVIDERS: ATTEND Nurse Practitioner
DX: N83.292 Other ovarian cyst, left side (principal); N88.8 Other specified noninflammatory disorders of cervix uteri; N20.0 Calculus of kidney; N83.12 Corpus luteum cyst of left ovary; R11.0 Nausea; Z87.442 Personal history of urinary calculi
CPT/HCPCS: 74178; 76830; 76856; 93976; J3490; Q9967

== ENCOUNTER 2022-11-17 07:24 | Outpatient (CLI) | payer BC | END 2022-11-17 23:59 | disposition home or self-care (01) | LOC: RAD 07:24 | PROVIDERS: ATTEND Student in an Organized Health Care Education/Training Program | DX: N20.0 Calculus of kidney (principal) | CPT/HCPCS: 74018 ==

== ENCOUNTER → 2022-12-19 | Outpatient (CLI) | payer BC ==
[2022-12-19 15:52] LABS: CLARITY,URINE CLEAR (Clear); COLOR,URINE YELLOW (Yellow); GLUCOSE, URINE NEGATIVE (Neg); KETONES,URINE NEGATIVE (Neg); LEUKOCYTE ESTERASE ,URINE NEGATIVE (Neg); NITRITES, URINE NEGATIVE (Neg); OCCULT BLOOD,URINE TRACE-INTACT (Neg); PROTEIN,URINE NEGATIVE (Neg); UROBILINOGEN,URINE 0.2 E.U/dL (0.2-1.0)
[2022-12-19 15:56] LABS: BASOPHILS # (AUTO) 0.1 X10'3 (0-0.2); BASOPHILS % (AUTO) 0.8 % (0-1); EOSINOPHILS # (AUTO) 0.2 X10'3 (0-0.9); EOSINOPHILS % (AUTO) 2.4 % (0-6); HEMATOCRIT 42.2 % (35.0-45.0); HEMOGLOBIN 13.9 g/dl (12.0-16.0); LYMPHOCYTES # (AUTO) 2.3 X10'3 (1.1-4.8); LYMPHOCYTES % (AUTO) 23.4 % (21-51); MEAN CORPUSCULAR HEMOGLOBIN 30.9 PG (27.0-31.0); MEAN CORPUSCULAR HGB CONC 32.9 g/dL (33.0-36.5); MEAN CORPUSCULAR VOLUME 93.9 FL (78-98); MEAN PLATELET VOLUME 7.6 FL (7.4-10.4); MONOCYTES # (AUTO) 0.5 X10'3 (0-0.9); MONOCYTES % (AUTO) 5.7 % (2-12); NEUTROPHILS # (AUTO) 6.5 X10'3 (1.8-7.7); NEUTROPHILS % (AUTO) 67.7 % (42-75); PLATELET COUNT 403 X10'3 (140-440); RED BLOOD COUNT 4.49 X10'6 (4.20-5.60); RED CELL DISTRIBUTION WIDTH 13.4 % (11.5-14.5); WHITE BLOOD COUNT 9.6 X10'3 (4.5-11.0)
[2022-12-19 15:58] LABS: UA COLLECTION TYPE CLN CATCH MIDSTREAM
[2022-12-19 16:04] LABS: ANION GAP 12 (8-16); BLOOD UREA NITROGEN 15 MG/DL (7-18); BUN/CREATININE RATIO 14.9 (10.0-20.0); CHLORIDE 103 MMOL/L (99-107); CREATININE 1.01 MG/DL (0.40-0.90); GLUCOSE 93 MG/DL (70-104); POTASSIUM 3.8 MMOL/L (3.5-5.1); SODIUM 138 MMOL/L (135-145); TOTAL CARBON DIOXIDE 23.5 MMOL/L (24-32); eGFR 58 ML/MIN
[2022-12-19 16:26] LABS: BACTERIA,URINE NONE SEEN /HPF (Neg); RBC,URINE 0-2 /HPF (0-2); SQUAMOUS EPITHELIAL CELL,UR FEW /LPF (FEW); WBC,URINE 0-4 /HPF (0-4)
== END | disposition home or self-care (01) ==
LOC: LAB 15:09
PROVIDERS: ATTEND Student in an Organized Health Care Education/Training Program
DX: Z01.812 Encounter for preprocedural laboratory examination (principal); N20.0 Calculus of kidney; N30.00 Acute cystitis without hematuria
CPT/HCPCS: 36415; 80048; 81001; 85025

== ENCOUNTER 2023-01-17 12:21 | Outpatient (CLI) | payer BC ==
[2023-01-17 12:52] LABS: BASOPHILS # (AUTO) 0.1 X10'3 (0-0.2); BASOPHILS % (AUTO) 1.1 % (0-1); COLOR,URINE YELLOW (Yellow); EOSINOPHILS # (AUTO) 0.3 X10'3 (0-0.9); EOSINOPHILS % (AUTO) 3.4 % (0-6); GLUCOSE, URINE NEGATIVE (Neg); HEMATOCRIT 39.9 % (35.0-45.0); HEMOGLOBIN 13.2 g/dl (12.0-16.0); KETONES,URINE NEGATIVE (Neg); LEUKOCYTE ESTERASE ,URINE NEGATIVE (Neg); LYMPHOCYTES # (AUTO) 2.4 X10'3 (1.1-4.8); LYMPHOCYTES % (AUTO) 25.7 % (21-51); MEAN CORPUSCULAR HEMOGLOBIN 31.2 PG (27.0-31.0); MEAN CORPUSCULAR HGB CONC 33.1 g/dL (33.0-36.5); MEAN CORPUSCULAR VOLUME 94.5 FL (78-98); MEAN PLATELET VOLUME 7.7 FL (7.4-10.4); MONOCYTES # (AUTO) 0.6 X10'3 (0-0.9); MONOCYTES % (AUTO) 6.7 % (2-12); NEUTROPHILS # (AUTO) 5.8 X10'3 (1.8-7.7); NEUTROPHILS % (AUTO) 63.1 % (42-75); NITRITES, URINE NEGATIVE (Neg); OCCULT BLOOD,URINE TRACE-INTACT (Neg); PH,URINE 5.5 (4.8-8.0); PLATELET COUNT 380 X10'3 (140-440); PROTEIN,URINE NEGATIVE (Neg); RED BLOOD COUNT 4.23 X10'6 (4.20-5.60); RED CELL DISTRIBUTION WIDTH 13.2 % (11.5-14.5); UROBILINOGEN,URINE 0.2 E.U/dL (0.2-1.0); WHITE BLOOD COUNT 9.2 X10'3 (4.5-11.0)
[2023-01-17 12:55] LABS: CLARITY,URINE SLIGHTLY CLOUDY (Clear); UA COLLECTION TYPE CLN CATCH MIDSTREAM
[2023-01-17 12:58] LABS: ALBUMIN 3.8 G/DL (3.4-5.0); ANION GAP 11 (8-16); BLOOD UREA NITROGEN 14 MG/DL (7-18); BUN/CREATININE RATIO 14.6 (10.0-20.0); CALCIUM 9.2 MG/DL (8.5-10.1); CHLORIDE 103 MMOL/L (99-107); CREATININE 0.96 MG/DL (0.40-0.90); GLUCOSE 106 MG/DL (70-104); SODIUM 139 MMOL/L (135-145); TOTAL CARBON DIOXIDE 24.9 MMOL/L (24-32); eGFR 61 ML/MIN
[2023-01-17 13:07] LABS: BACTERIA,URINE NONE SEEN /HPF (Neg); RBC,URINE 0-2 /HPF (0-2); SQUAMOUS EPITHELIAL CELL,UR FEW /LPF (FEW); WBC,URINE NONE SEEN /HPF (0-4)
== END 2023-01-17 23:59 | disposition home or self-care (01) ==
LOC: LAB 12:21
PROVIDERS: ATTEND Student in an Organized Health Care Education/Training Program
DX: Z01.818 Encounter for other preprocedural examination (principal); N20.0 Calculus of kidney; N30.00 Acute cystitis without hematuria
CPT/HCPCS: 36415; 80048; 81001; 85025

== ENCOUNTER 2023-01-27 13:12 | Emergency (ER) | payer BC ==
[~2023-01-27] VITALS: Ht 162.6 cm; Wt 101.0 kg
[2023-01-27 13:25] VITALS: BP 132/88; PULSE 80; RESP 18; TEMP 97.8; O2SAT 97
[2023-01-27] MEDS ORDERED: TETanus/Pertussis (Acell)/Diphther VAC/PF (Tdap-Adult) 0.5ml syringe IMVAC ONE (14:20)
[2023-01-27] MEDS ORDERED: CEPH-585 PO (14:21)
== END 2023-01-27 14:32 | disposition home or self-care (01) ==
LOC: ER 13:14
DX: S50.862A Insect bite (nonvenomous) of left forearm, initial encounter (principal); Z87.81 Personal history of (healed) traumatic fracture; Z79.899 Other long term (current) drug therapy; W57.XXXA Bitten or stung by nonvenomous insect and other nonvenomous arthropods, initial encounter; Y93.89 Activity, other specified; Y92.89 Other specified places as the place of occurrence of the external cause; Y99.8 Other external cause status
CPT/HCPCS: 90471; 90715; 99283

== ENCOUNTER 2023-02-20 14:38 | Outpatient (CLI) | payer BC ==
[~2023-02-20 14:38] MED LIST changes: +CEPH-585 PO
== END 2023-02-20 23:59 | disposition home or self-care (01) ==
LOC: RAD 14:38
PROVIDERS: ATTEND Student in an Organized Health Care Education/Training Program
DX: N20.0 Calculus of kidney (principal)
CPT/HCPCS: 74018

== ENCOUNTER → 2023-11-03 | Outpatient (CLI) | payer BC ==
[2023-11-03 11:30] LABS: BASOPHILS # (AUTO) 0.1 X10'3 (0-0.2); EOSINOPHILS # (AUTO) 0.3 X10'3 (0-0.9); EOSINOPHILS % (AUTO) 3.9 % (0-6); HEMATOCRIT 39.5 % (35.0-45.0); HEMOGLOBIN 13.3 g/dl (12.0-16.0); LYMPHOCYTES % (AUTO) 30.8 % (21-51); MEAN CORPUSCULAR HEMOGLOBIN 31.7 PG (27.0-31.0); MEAN CORPUSCULAR HGB CONC 33.7 g/dL (33.0-36.5); MEAN CORPUSCULAR VOLUME 94.3 FL (78-98); MEAN PLATELET VOLUME 7.5 FL (7.4-10.4); MONOCYTES # (AUTO) 0.3 X10'3 (0-0.9); MONOCYTES % (AUTO) 5.4 % (2-12); NEUTROPHILS # (AUTO) 3.8 X10'3 (1.8-7.7); NEUTROPHILS % (AUTO) 58.9 % (42-75); PLATELET COUNT 398 X10'3 (140-440); RED BLOOD COUNT 4.19 X10'6 (4.20-5.60); RED CELL DISTRIBUTION WIDTH 13.2 % (11.5-14.5); WHITE BLOOD COUNT 6.4 X10'3 (4.5-11.0)
[2023-11-03 12:02] LABS: ALANINE AMINOTRANSFERASE 20 U/L (12-78); ALBUMIN/GLOBULIN RATIO 1.1 (1.1-1.5); ALKALINE PHOSPHATASE 60 IU/L (46-116); ANION GAP 6 (8-16); ASPARTATE AMINO TRANSFERASE 17 U/L (10-37); BILIRUBIN,TOTAL 0.4 MG/DL (0.1-1.0); BLOOD UREA NITROGEN 14 MG/DL (7-18); BUN/CREATININE RATIO 16.5 (10.0-20.0); CALCIUM 9.3 MG/DL (8.5-10.1); CHLORIDE 102 MMOL/L (99-107); CHOLESTEROL 211 MG/DL (0-200); CREATININE 0.85 MG/DL (0.40-0.90); GLUCOSE 102 MG/DL (70-104); HDL CHOLESTEROL 53 MG/DL (35-60); LDL CHOLESTEROL 129 MG/DL (50-100); POTASSIUM 3.9 MMOL/L (3.5-5.1); SODIUM 135 MMOL/L (135-145); THYROID STIMULATING HORMONE 2.07 ulU/ml (0.34-4.50); TOTAL CARBON DIOXIDE 26.6 MMOL/L (24-32); TOTAL PROTEIN 7.7 G/DL (6.4-8.2); TRIGLYCERIDES 195 MG/DL (20-135); eGFR 70 ML/MIN
== END | disposition home or self-care (01) ==
LOC: LAB 10:34
PROVIDERS: ATTEND Nurse Practitioner
DX: N28.1 Cyst of kidney, acquired (principal); R10.9 Unspecified abdominal pain; R10.2 Pelvic and perineal pain; N28.9 Disorder of kidney and ureter, unspecified; R53.83 Other fatigue; E55.9 Vitamin D deficiency, unspecified
CPT/HCPCS: 36415; 80053; 80061; 82306; 84443; 85025

== ENCOUNTER 2024-04-22 09:03 | Outpatient (CLI) | payer BC ==
[~2024-04-22 09:03] MED LIST changes: -CEPH-585 PO
[2024-04-22 09:32] LABS: BASOPHILS # (AUTO) 0.1 X10'3 (0-0.2); BASOPHILS % (AUTO) 1.2 % (0-1); EOSINOPHILS # (AUTO) 0.3 X10'3 (0-0.9); EOSINOPHILS % (AUTO) 4.8 % (0-6); HEMATOCRIT 38.1 % (35.0-45.0); HEMOGLOBIN 12.9 g/dl (12.0-16.0); LYMPHOCYTES % (AUTO) 31.3 % (21-51); MEAN CORPUSCULAR HEMOGLOBIN 31.6 PG (27.0-31.0); MEAN CORPUSCULAR HGB CONC 33.8 g/dL (33.0-36.5); MEAN CORPUSCULAR VOLUME 93.4 FL (78-98); MEAN PLATELET VOLUME 7.6 FL (7.4-10.4); MONOCYTES # (AUTO) 0.4 X10'3 (0-0.9); MONOCYTES % (AUTO) 6.3 % (2-12); NEUTROPHILS # (AUTO) 3.7 X10'3 (1.8-7.7); NEUTROPHILS % (AUTO) 56.4 % (42-75); PLATELET COUNT 376 X10'3 (140-440); RED BLOOD COUNT 4.07 X10'6 (4.20-5.60); RED CELL DISTRIBUTION WIDTH 12.8 % (11.5-14.5); WHITE BLOOD COUNT 6.5 X10'3 (4.5-11.0)
[2024-04-22 09:46] LABS: ALANINE AMINOTRANSFERASE 20 U/L (12-78); ALBUMIN 3.7 G/DL (3.4-5.0); ALKALINE PHOSPHATASE 53 IU/L (46-116); ANION GAP 9 (8-16); ASPARTATE AMINO TRANSFERASE 15 U/L (10-37); BILIRUBIN,TOTAL 0.7 MG/DL (0.1-1.0); CALCIUM 9.1 MG/DL (8.5-10.1); CHLORIDE 104 MMOL/L (99-107); CREATININE 0.92 MG/DL (0.40-0.90); GLUCOSE 109 MG/DL (70-104); POTASSIUM 3.9 MMOL/L (3.5-5.1); SODIUM 140 MMOL/L (135-145); TOTAL CARBON DIOXIDE 26.8 MMOL/L (24-32); TOTAL PROTEIN 7.3 G/DL (6.4-8.2); eGFR 64 ML/MIN
[2024-04-22 09:56] LABS: BLOOD UREA NITROGEN 17 MG/DL (7-18); BUN/CREATININE RATIO 18.5 (10.0-20.0); FREE T4 (FREE THYROXINE) 0.93 NG/DL (0.73-1.40); THYROID STIMULATING HORMONE 2.37 ulU/ml (0.34-4.50)
== END 2024-04-22 23:59 | disposition home or self-care (01) ==
LOC: US 09:03
PROVIDERS: ATTEND Nurse Practitioner
DX: E04.2 Nontoxic multinodular goiter (principal); R53.83 Other fatigue; F10.20 Alcohol dependence, uncomplicated; J02.0 Streptococcal pharyngitis
CPT/HCPCS: 36415; 76536; 80053; 84439; 84443; 85025

== ENCOUNTER 2024-12-03 09:42 | Outpatient (CLI) | payer BC ==
[2024-12-03 10:03] LABS: BASOPHILS # (AUTO) 0.1 X10'3 (0-0.2); BASOPHILS % (AUTO) 1.5 % (0-1); EOSINOPHILS # (AUTO) 0.3 X10'3 (0-0.9); EOSINOPHILS % (AUTO) 4.5 % (0-6); HEMATOCRIT 39.8 % (35.0-45.0); HEMOGLOBIN 13.8 g/dl (12.0-16.0); LYMPHOCYTES # (AUTO) 2.2 X10'3 (1.1-4.8); LYMPHOCYTES % (AUTO) 33.3 % (21-51); MEAN CORPUSCULAR HEMOGLOBIN 31.6 PG (27.0-31.0); MEAN CORPUSCULAR HGB CONC 34.7 g/dL (33.0-36.5); MEAN PLATELET VOLUME 7.4 FL (7.4-10.4); MONOCYTES # (AUTO) 0.3 X10'3 (0-0.9); MONOCYTES % (AUTO) 4.7 % (2-12); NEUTROPHILS # (AUTO) 3.8 X10'3 (1.8-7.7); PLATELET COUNT 417 X10'3 (140-440); RED BLOOD COUNT 4.37 X10'6 (4.20-5.60); RED CELL DISTRIBUTION WIDTH 12.9 % (11.5-14.5); WHITE BLOOD COUNT 6.7 X10'3 (4.5-11.0)
[2024-12-03 10:22] LABS: HEMOGLOBIN A1C 5.7 % (4.5-6.2)
[2024-12-03 10:31] LABS: ALANINE AMINOTRANSFERASE 25 U/L (12-78); ALBUMIN 3.7 G/DL (3.4-5.0); ALKALINE PHOSPHATASE 61 IU/L (46-116); ANION GAP 9 (8-16); ASPARTATE AMINO TRANSFERASE 16 U/L (10-37); BILIRUBIN,TOTAL 0.7 MG/DL (0.1-1.0); BLOOD UREA NITROGEN 15 MG/DL (7-18); BUN/CREATININE RATIO 16.3 (10.0-20.0); CALCIUM 8.8 MG/DL (8.5-10.1); CHLORIDE 103 MMOL/L (99-107); CREATININE 0.92 MG/DL (0.40-0.90); FREE T4 (FREE THYROXINE) 0.94 NG/DL (0.73-1.40); GLUCOSE 108 MG/DL (70-104); HDL CHOLESTEROL 48 MG/DL (35-60); LDL CHOLESTEROL 108 MG/DL (50-100); POTASSIUM 3.9 MMOL/L (3.5-5.1); SODIUM 136 MMOL/L (135-145); THYROID STIMULATING HORMONE 1.78 ulU/ml (0.34-4.50); TOTAL CARBON DIOXIDE 23.7 MMOL/L (24-32); TOTAL PROTEIN 7.5 G/DL (6.4-8.2); TRIGLYCERIDES 189 MG/DL (20-135); eGFR 64 ML/MIN
[2024-12-03 10:34] LABS: CHOLESTEROL 193 MG/DL (0-200)
== END 2024-12-03 23:59 | disposition home or self-care (01) ==
LOC: RAD 09:42
PROVIDERS: ATTEND Nurse Practitioner
DX: R79.89 Other specified abnormal findings of blood chemistry (principal); R53.83 Other fatigue
CPT/HCPCS: 36415; 80053; 80061; 83036; 84439; 84443; 85025

== ENCOUNTER 2024-12-27 08:37 | Outpatient (CLI) | payer BC ==
[2024-12-28 08:18] LABS: TESTOSTERONE, SERUM 29 ng/dL (4-50)
== END 2024-12-27 23:59 | disposition home or self-care (01) ==
LOC: LAB 08:37
PROVIDERS: ATTEND Physician Assistant
DX: R68.82 Decreased libido (principal)
CPT/HCPCS: 36415; 84402; 84403

== ENCOUNTER 2025-03-15 02:47 | Inpatient (IN) | payer BC ==
[2025-03-15] VITALS (16 sets, daily range): BP systolic 113–129; BP diastolic 59–79; PULSE 76–89; RESP 10–19; TEMP 97.9–98.1; O2SAT 94–100
[~2025-03-15] VITALS: Ht 162.6 cm; Wt 90.0 kg
--- NOTE | 2025-03-15 03:08 | ELECTROCARDIOGRAPH REPORT ---
[facility] Test Date: 2025-03-15 Test Time: 02:59:55 Pat Name: ANAYELI HOWE Department: EMERGENCY ROOM Patient ID: [id number] Room: Gender: F Senior Data Scientist: GAATA : [id number] Requested By: LUIZ HERNDON Order Number: [id number] Reading MD: Dr. Luiz Herndon Measurements Intervals [place] Rate: 87 P: 75 MD: 154 QRS: 84 QRSD: 105 T: 0 QT: 402 QTc: 484 Interpretive Statements Sinus rhythm Borderline repolarization abnormality Electronically Signed On 03-15-2025 4:30:[address] Luiz Herndon Please click the below link to view image of tracing.
[2025-03-15 03:53] LABS: MEAN PLATELET VOLUME 7.9 FL (7.4-10.4); RED CELL DISTRIBUTION WIDTH 12.9 % (11.5-14.5)
[2025-03-15 04:06] LABS: CREATININE 0.98 MG/DL (0.40-0.90); TOTAL CARBON DIOXIDE 33.8 MMOL/L (24-32); eCRCL 57 ML/MIN; eGFR 59 ML/MIN
[2025-03-15 05:35] LABS: URINE HCG NEGATIVE (NEG)
[2025-03-15 05:37] LABS: LEUKOCYTE ESTERASE ,URINE NEGATIVE (Neg); NITRITES, URINE NEGATIVE (Neg); OCCULT BLOOD,URINE NEGATIVE (Neg)
[2025-03-15 05:42] LABS: UA COLLECTION TYPE NON-SPECIFIED
[2025-03-15 05:51] LABS: URINE AMPHETAMINE SCREEN NEGATIVE (Neg); URINE BARBITUATE SCREEN NEGATIVE (Neg); URINE BENZODIAZEPINES SCREEN NEGATIVE (Neg); URINE CANNABINOID SCREEN NEGATIVE (Neg); URINE COCAINE SCREEN NEGATIVE (Neg); URINE METHADONE SCREEN NEGATIVE (Neg); URINE OPIATE SCREEN NEGATIVE (Neg); URINE PHENCYCLIDINE SCREEN NEGATIVE (Neg)
[2025-03-15 06:08] LABS: ETHANOL < 10 MG/DL (<10)
--- NOTE | 2025-03-15 08:11 | Physician Documentation ---
History of Present Illness Chief Complaint: Abdominal Pain w/vomiting Stated Complaint: ABDOMINAL PAIN Time Seen by MD: 07:30 Primary Medical Doctor: yuridia [facility] Source: patient Mode of Arrival: Ambulatory Exam Limitations: no limitations HPI Chief Complaint: Abdominal pain Caveat: None Independent Historians: None History of Present Illness: Patient is a 54-year-old woman comes in complaining of severe upper center and right abdominal pain. Pain came on suddenly at 1:00 a.m. and woke her from sleep. Patient had associated nausea and vomiting. With the patient arrived to the hospital her pain had improved. Pain was 10/10 and felt like a pressure. Currently she just feels a little sore. Nausea and vomiting has resolved. No diarrhea. No fever. Patient has had a recent episode of right upper quadrant abdominal pain that was not as severe in lasted only 30 minutes. Review of systems: All systems were reviewed and are negative except for what is indicated in the history of present illness. Past Medical History: None Past Surgical History: History of liver laceration requiring surgery when she was a child. Social History: Occasional alcohol use, no tobacco use, no drug use Medications: Reviewed as documented Nursing Notes Allergies: Reviewed as documented in Nursing Notes Day of Onset: Mar 15, 2025 Medication Reconciliation Allergies: Coded Allergies: No Known Allergies (Unverified , 01/22/19) Scheduled Cholecalciferol (Vitamin D), 5,000 INTLU PO DAILY, (Reported) Estradiol (Estradiol), 1 PATCH TD Q72H, (Reported) Lactobacillus Acidophilus (Probiotic), 1 EACH PO DAILY, (Reported) Multivitamin (Multi Vitamin Daily), 1 EACH PO DAILY, (Reported) [Tumeric], Unknown Dose DAILY, (Reported) Scheduled PRN Hydrocodone Bit/Acetaminophen (Hydrocodon-Acetaminophen 5-325), 1 TAB PO Q6H PRN for pain, (Reported) Past Medical History Past Medical History: Extremity Fracture Past Surgical History: no surgical history Alcohol Use: None Drug Use: none Lives with: Family Lives In: Home Occupation: employed Review of Systems All Other Systems at this time: Reviewed and Negative ROS Patient denies any other acute symptoms other than above. All other systems are negative Physical Exam Vital Signs: RN Vital Signs have been reviewed: Yes, Temperature: 97.7, Source: Temporal, Heart Rate: 88, Respiratory Rate: 16, BP: 119/73, Pulse Oximetry: 99, Weight: 90.000 Oxygen Flow Rate: 0 Pulse Oximetry Reflects: adequate oxygenation Physical Exam General Appearance: No distress HEENT: Normal OP, moist oral mucosa, PERRL, EOMI Neck: supple, normal ROM, trachea midline Pulmonary: No respiratory distress, CTA, BS equal Cardiac: RRR, no murmur, rub or gallop, GI: nondistended, soft, right upper quadrant and epigastric tenderness, normal bowel sounds, no guarding, no rebound Extremities: normal ROM, no swelling, non-tender Skin: intact, dry, warm, no rashes Neuro: AAOx3, speech is clear, no focal motor weakness Psych: normal affect, good eye contact, no apparent hallucination, normal speech Progress Results/Orders Results/Orders Orders - ANA JONES MD Ultrasound Of Abdomen (03/15/25 08:06) Vital Signs 03/15/25 03/15/25 03/15/25 03/15/25 02:49 03:42 03:45 04:30 Temp 97.7 Pulse 77 80 84 Resp 18 16 18 16 B/P (MAP) 140/79 123/74 (90) 107/65 (79) Pulse Ox 98 97 97 O2 Flow Rate 0 03/15/25 03/15/25 05:15 06:05 Pulse 80 88 Resp 16 16 B/P (MAP) 106/65 (79) 119/73 (88) Pulse Ox 99 99 O2 Flow Rate 0 Laboratory Tests Test 03/15/25 02:45 03/15/25 03:33 03/15/25 05:35 Urine Specimen Description Non-specified Urine Color Yellow Urine Clarity Clear Urine pH >=9.0 H Urine Specific [place] 1.010 Urine Protein Negative Urine Glucose (UA) Negative Urine Ketones Negative Urine Occult Blood Negative Urine Nitrite Negative Urine Bilirubin Negative Urine Urobilinogen 0.2 Urine Leukocyte Esterase Negative Urine Culture Indicated Not ind Volume Urine Centrifuged 10 ml Urine HCG, Qualitative Negative Urine Comment Urine Opiates Screen Negative Urine Methadone Screen Negative Urine Fentanyl Screen Negative Urine Barbiturates Screen Negative Urine Phencyclidine Screen Negative Urine Amphetamines Screen Negative Urine Benzodiazepines Screen Negative Urine Cocaine Screen Negative Urine Cannabinoids Screen Negative Drug Screen Comment White Blood Count 10.9 Red Blood Count 4.24 Hemoglobin 13.1 Hematocrit 38.4 Mean Corpuscular Volume 90.6 Mean Corpuscular Hemoglobin 30.9 Mean Corpuscular Hemoglobin Concent 34.1 Red Cell Distribution Width 12.9 Platelet Count 378 Mean Platelet Volume 7.9 Neutrophils (%) (Auto) 84.3 H Lymphocytes (%) (Auto) 10.2 L Monocytes (%) (Auto) 4.5 Eosinophils (%) (Auto) 0.6 Basophils (%) (Auto) 0.4 Neutrophils # (Auto) 9.2 H Lymphocytes # (Auto) 1.1 Monocytes # (Auto) 0.5 Eosinophils # (Auto) 0.1 Basophils # (Auto) 0.0 CBC Comment Sodium Level 145 Potassium Level 3.2 L Chloride Level 106 Carbon Dioxide Level 33.8 H Anion Gap 5 L Blood Urea Nitrogen 21 H Creatinine 0.98 H Estimated GFR/1.73 m2 59 BUN/Creatinine Ratio 21.4 H Glucose Level 109 H Calcium Level 9.0 Total Bilirubin 1.4 H Aspartate Amino Transf (AST/SGOT) 153 H Alanine Aminotransferase (ALT/SGPT) 67 Alkaline Phosphatase 81 Total Protein 7.3 Albumin 3.7 Globulin 3.6 Albumin/Globulin Ratio 1.0 L Lipase 44 Chemistry Comments Magnesium Level 1.9 Ethyl Alcohol Level < 10 Medical Decision Making Findings Differential diagnosis includes but is not limited to: Acute pancreatitis, gastritis, peptic ulcer disease, duodenal ulcer, duodenitis, biliary colic, cholelithiasis, choledocholithiasis, ureteral colic, renal colic EKG independent interpretation: Performed at 2:59 a.m.. Normal sinus rhythm, heart rate 87, normal axis, nonspecific ST segments Limited abdominal ultrasound, indication: Abdominal pain Impression: 1. Cholelithiasis with possible cholecystitis. Laboratory data independent interpretation: CBC: Unremarkable CMP: Unremarkable, multiple minor abnormalities, mild hypokalemia 3.2, BUN and creatinine mildly elevated at 21 and 0.98, total bilirubin 1.4, AST mildly elevated 153, normal ALT 67, normal alk-phos 81 Urinalysis: Unremarkable Urine : Negative Toxicology: Negative urine drug screen, alcohol negative Emergency department course/medical decision-making: Patient presents with the acute abdominal pain. Patient is found to have cholelithiasis and possible cholecystitis. Patient's lab work isn't consistent with choledocholithiasis although she does have just a mildly elevated total bilirubin and AST with a normal ALT and normal alk-phos. Patient is currently pain-free. Do not suspect acute cholecystitis. Patient is afebrile. Patient is hemodynamically stable. Case discussed with our surgeon. He will schedule cholecystectomy for this afternoon. Keep the patient NPO. Patient is agreeable to this plan. All of the above reviewed with the patient. Consultation/communications: 9:20 a.m.: Call placed to our surgeon Dr. Espinoza for consultation. 9:25 a.m.: Case discussed with Dr. Espinoza. He will schedule surgery for her this afternoon. We will consult hospitalist for admission 9:28 a.m.: Call placed for hospitalist for admission. 9:45 a.m.: Our hospitalist Dr. Monteiro is aware of the patient and will evaluated her for admission. Departure Time of Disposition: : Disposition: 09 ADMITTED INPATIENT Admitted to Inpatient Unit: to hospitalist Admission Level of Care: Med/Surg Impression: Primary Impression: Biliary colic Additional Impression: Cholelithiasis Qualified Codes: K80.20 - Calculus of gallbladder without cholecystitis without obstruction Condition: Stable Education Educated: Patient Educated regarding: diagnosis, treatment Signature Scribe Signature: No scribe Attestation: No scribe ANA JONES MD Mar 15, 2025 08:11
--- NOTE | 2025-03-15 08:51 | RADIOLOGY REPORT ---
Ultrasound abdomen INDICATION: Abdominal Pain R/O Gallbladder Technique: 2-D real-time ultrasound was performed with axial and sagittal images submitted for evaluation. FINDINGS: Liver and spleen are normal in size without focal mass. Liver measures 16 cm there are gallstones present. The gallbladder wall slightly thickened measuring 3 mm. Continuous Conveyor Screen Drier reported positive sonographic gtz's sign No biliary dilatation. Common bile duct measures 3.8 mm Kidneys are normal in size without mass stone or hydronephrosis. Limited visualization of the pancreas due to overlying bowel gas. No free fluid. No abnormalities of the aorta or inferior vena cava. IMPRESSION: 1. Cholelithiasis with possible cholecystitis.
[2025-03-15] MEDS ORDERED: ESTR1PAT83 TD (09:54)
[2025-03-15] MEDS ORDERED: TIRZ5VIA SQ (09:58)
[2025-03-15] MEDS ORDERED: PROG100C11 PO (09:58)
[2025-03-15] MEDS ORDERED: acetaminophen 650mg rectal suppository RC PRN (10:20)
[2025-03-15] MEDS ORDERED: potassium Cl 40MEQ/1/2NS 520ml 520 ML IV PRN (10:20)
[2025-03-15] MEDS ORDERED: potassium Cl 20 mEq SR tablet PO PRN (10:20)
[2025-03-15] MEDS ORDERED: ondansetron/PF 4mg/2ml inj IV PRN ×2 (10:20→13:30)
[2025-03-15] MEDS ORDERED: morphine 4 MG/ML inj SYRINge IV PRN (10:20)
[2025-03-15] MEDS ORDERED: magnesium sulf-water 4G/100mL 100 ML IV PRN (10:20)
[2025-03-15] MEDS ORDERED: magnesium Cl slow-release 64mg tablet PO PRN (10:20)
[2025-03-15] MEDS ORDERED: magnesium sulf-water 2g/50mL 50 ML IV PRN (10:20)
[2025-03-15] MEDS: normal saline 1000ml 1,000 ML IV SCH (10:44)
[2025-03-15] MEDS: INDOCYANINE GREEN 25 MG/10 ML VIAL IV ONE (13:07)
[2025-03-15] MEDS ORDERED: HYDROmorphone/PF 0.2 MG/ML SYRINGE IV PRN ×2 (13:30)
[2025-03-15] MEDS ORDERED: enalaprilat 1.25mg/ml 2ml vial IV PRN (13:30)
[2025-03-15] MEDS ORDERED: fentaNYL/PF 50MCG/1 ML 2ML syringe IV PRN ×2 (13:30)
[2025-03-15] MEDS: ringers solution, lacted 1,000 ML IV SCH (13:30)
[2025-03-15] MEDS ORDERED: labetalol 20mg/4ml (5mg/ml) syringe IV PRN (13:30)
[2025-03-15] MEDS ORDERED: BUPIVAcaine 2.5mg/ml inj 50ml vial (contains preservative) ONE (14:27)
[2025-03-15] MEDS ORDERED: LIDOcaine 1% 30ml preserv. free vial ONE (14:27)
--- NOTE | 2025-03-15 14:55 | CONSULTATION REPORT ---
History of Present Illness Providers to CC ~ Reason for Admit\Admit Dx: Acute calculous cholecystitis Refering MD: yuridia [facility] History of Present Illness Patient with a longstanding history of recurrent right upper quadrant pain that radiates to the right scapula. She states that the workup has been ongoing over the last several years with intermittent and chronic episodes. Patient states she has never been diagnosed with gallstones despite MRCP and negative HIDA scan. Today at about 1:00 a.m. this morning, she was awakened with severe epigastric pain that radiated in a bandlike fashion across the upper abdomen. This lasted for over an hour and ultimately resolved. She continued to have some pain between her shoulder blades. In the emergency room she was evaluated with both laboratory and radiologic workup. Mild elevation in bilirubin and AST and an ultrasound that showed cholelithiasis and sonographic Lambert's sign. Surgical consultation was requested. Patient's symptoms have now somewhat resolved and she has only mild right upper quadrant abdominal pain. No nausea or vomiting. No dark urine or aurora-colored stool. Allergies: Coded Allergies: No Known Allergies (Unverified , 01/22/19) Home Medications Home Medications Active Reported Zepbound (Tirzepatide) 5 Mg/0.5 Ml Vial 5 SQ Q7D Progesterone (Progesterone,Micronized) 100 Mg Capsule 100 Mg PO Estradiol 0.06 Mg/24 Hour Patch.tdwk 1 Patch TD Q72H 28 Days Probiotic (Lactobacillus Acidophilus) 1 Each Capsule 1 Each PO DAILY Multi Vitamin Daily (Multivitamin) 1 Each Tablet 1 Each PO DAILY Vitamin D (Cholecalciferol) 2,000 Unit Tablet 5,000 Intlu PO DAILY Past Medical History Medical History Comment None Past Surgical History Surgical History Comment Exploratory laparotomy as an adolescent for liver laceration Past Family History Family History Comment Noncontributory Past Social History Social History Comment Negative for tobacco or drug use Occasional alcohol intake 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 Vital Signs Recorded: RN Vital Signs have been reviewed: Yes, Temperature: 97.7, Source: Temporal, Heart Rate: 91, Respiratory Rate: 16, BP: 114/79, Pulse Oximetry: 98, Weight: 90.000 General Appearance: alert, WD/WN EENT: PERRL/EOMI; No: scleral icterus (R), scleral icterus (L) Neck: normal inspection, supple Respiratory: lungs clear Cardiovascular: normal peripheral pulses, regular rate, rhythm Gastrointestinal Soft and nondistended No epigastric tenderness to palpation No rebound tenderness Mild right upper quadrant tenderness to palpation No palpable masses Rectal: deferred Back: normal inspection Extremities: normal range of motion, non-tender, no edema Psychiatric: normal mood/affect; No: anxiety Skin: normal color Lymphatic: no adenopathy Review of Systems ROS ROS Comments: Reviewed and negative with the exception of those found in the history of present illness Results Diagram Lab Result Diagram: 03/15/25 0333 03/15/25 0333 Assessment/Plan Problems/Diagnosis: (1) Acute calculous cholecystitis Assessment & Plan: The risks, benefits, and alternatives to a robotic assisted, laparoscopic possible open cholecystectomy were discussed with the patient. Risks include, but are not limited to, bleeding, infection, injury to intra- abdominal structures, injury to the biliary tree, postoperative bile leak and retained common bile duct stone. Patient verbalized understanding and wishes to proceed with surgery. We will do so today as soon as possible. LORENZA SAHNI MD Mar 15, 2025 14:55
[2025-03-15] MEDS ORDERED: fentaNYL/PF 50MCG/1 ML 2ML syringe ONE (15:11)
[2025-03-15] MEDS ORDERED: morphine 4 MG/ML inj SYRINge ONE (15:11)
[2025-03-15] MEDS ORDERED: midazolam 1 mg/ML 2ml injection ONE (15:11)
[2025-03-15] MEDS ORDERED: ondansetron/PF 4mg/2ml inj ONE (15:24)
[2025-03-15] MEDS ORDERED: propofol inj 20 ML IV ONE (15:24)
[2025-03-15] MEDS ORDERED: rocuronium 10mg/ml inj IV ONE (15:24)
[2025-03-15] MEDS ORDERED: LIDOcaine 2% (20mg/ml) 5ml vial ONE (15:24)
[2025-03-15] MEDS ORDERED: dexamethasone sod phosphate 4mg/ml inj. ONE (15:24)
[2025-03-15] MEDS ORDERED: ceFOXitin 1000 MG inj ONE ×3 (15:25→15:29)
[2025-03-15] MEDS: BUPIVAcaine/PF 2.5 mg/ml (0.25%) 30ml vial IJ ONE (15:40)
[2025-03-15] MEDS: LIDOcaine 1% 30ml preserv. free vial IJ ONE (15:40)
[2025-03-15] MEDS ORDERED: HYDROcodone/acetaminophen 10/325mg tab PO PRN (16:30)
[2025-03-15] MEDS ORDERED: HYDROcodone/acetaminophen 5mg/325mg tablet PO PRN (16:30)
[2025-03-15] MEDS ORDERED: PCA WASTE DOCUMENTATION 1 MG ML MC SCH (16:30)
[2025-03-15] MEDS ORDERED: glycopyrrolate 0.2mg/ml inj ONE (16:33)
--- NOTE | 2025-03-15 16:39 | OPERATIVE REPORT ---
Operative Report Providers to CC CC: JUSTO SAHNI MD ~ Date of Procedure: Mar 15, 2025 Pre-Operative Diagnosis: Symptomatic cholelithiasis, acute cholecystitis Post-Operative Diagnosis SAME as PRE-Op Procedure Performed Robotic assisted, laparoscopic enterolysis Robotic assisted, laparoscopic cholecystectomy Surgeon: Justo Sahni MD FACS Shank Faker None Anesthesiologist: Ayad Lancaster Type of Anesthesia: General Findings: Extensive adhesions involving the entire upper abdomen, especially the right upper quadrant with transverse colon, omentum and duodenal sweep all adherent to the liver edge and gallbladder requiring extended operative time and dedicated enterolysis. Gallbladder filled using firefly/fluorescent cholangiography with clear view of the biliary anatomy and critical view of safety obtained Complications None Prosthetics\Implants used: None Estimated Blood Loss: Minimal Specimen Removed: Gallbladder Description of Procedure: Patient was brought to the operating room and identified by the nursing staff and the attending physician. Patient was placed supine and general anesthesia was induced. A supraumbilical, midline incision was made, long enough to accommodate a 12 mm Castano port. Castano technique was used to gain entry into the abdomen. Stay sutures were placed in the Castano port anchored to the fascia. Abdomen was insufflated without incident. Laparoscope was inserted and the abdomen surveyed. The entire upper abdomen from just above the umbilical port was completely obscured by omental adhesions. I was able to visualize the mid abdomen and place both right and left robotic trocars. The secondary, 8.5 mm robotic trochars were placed in the left lateral abdomen and right lateral abdomen. Robotic arm was docked to the patient. Robotic instruments were guided intra- abdominally under laparoscopic visualization. The next 30 minutes was spent taking down adhesions between omentum and the anterior abdominal wall. This also required taking adhesions between the transverse colon and the liver edge as well as duodenal sweep and the anterior aspect of the gallbladder. Once the enterolysis and additional lysis of adhesions was completed, I was able to clearly see the gallbladder. Further adhesiolysis allowed for visualization of the infundibulum of the gallbladder. There were adhesions between the liver and the anterior abdominal wall that made the liver edge essentially fixed. These adhesions were taken down to allow better gallbladder retraction and movement of the liver edge. Fundus of the gallbladder was grasped and retracted over the dome of the liver. Infundibulum was retracted towards the right lower quadrant. Firefly technology was used to obtain a fluorescent cholangiogram and visualize the pertinent anatomy. Cystic duct was clearly visualized. Peritoneum overlying the triangle was incised with hook electrocautery. This allowed for circumferential dissection of the cystic duct and artery. Critical view of safety was obtained. Duct and artery were then clipped with hemo-lock clips and both structures divided. Gallbladder was retracted laterally and dissected out of the gallbladder fossa. Gallbladder was set aside and fluorescent cholangiogram of the gallbladder fossa was used to confirm no evidence of bile leak. Gallbladder was placed in a laparoscopic retrieval bag. Secondary trochars were removed and the abdomen allowed to deflate. Castano port was removed with the specimen in its retrieval bag. Fascia at the umbilical port site was closed with 0 Vicryl sutures. Skin was closed with 4-0 Monocryl sutures in a subcuticular fashion. About 40 cc of local anesthetic was used during the case. Sterile dressings were applied. Patient was awakened and taken to the postanesthesia care unit in stable condition. Counts repoted as correct: Yes JUSTO SAHNI MD Mar 15, 2025 16:39
[2025-03-15] MEDS: morphine 4 MG/ML inj SYRINge IV PRN ×2 (16:41→19:55)
--- NOTE | 2025-03-15 17:36 | HISTORY AND PHYSICAL ---
History & Physical Providers to CC ~ History of Present Illness Reason for Admit\Complaint: Abdominal pain History of Present Illness 54 years old female presented to the ER for evaluation of epigastric and right upper quadrant pain. It woke her up around 1:00 a.m.. Patient had associated nausea and vomiting. She is evaluated in the emergency room and found to have cholelithiasis and possible acute cholecystitis. Patient was taken OR by Dr. Espinoza and has been admitted for postoperative care. 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 Past Surgical History Surgical History Comment At age 11, patient states she fell off a horse and had a liver laceration for which she underwent surgery. Bimalleolar fracture of the left ankle for which she had pins and screws. Past Social History Social History Comment Quit smoking several years ago, drinks socially, does not do any drugs. Health Maintenance Health Maintenance Current on her immunizations ROS ROS All other systems are reviewed and are negative except for as mentioned in HPI. Exam Vitals: Vital Signs Date Time Temp Pulse Resp B/P (MAP) Pulse Ox O2 Delivery O2 Flow Rate FiO2 03/15/25 17:20 79 14 121/70 (87) 97 Nasal Cannula 2.0 03/15/25 16:38 97.2 General: Awake cooperative in no acute distress. HEENT: Normocephalic atraumatic pupils round reactive to light and accommodation, extraocular movements intact, sclera anicteric, conjunctiva pinkish, moist oral mucosa, no rash or ulcers. Neck: Supple, no JVD, trachea midline, no lymphadenopathy. Chest: Clear to auscultation, no wheezes crackles or rhonchi. Cardiovascular: Regular rate rhythm, no murmur gallop or rub. Abdomen: Soft, silent, tender as expected, laparoscopic incisions noted Extremities: No cyanosis clubbing or edema Central Nervous System: Nonfocal. Moves all 4 extremities. Musculoskeletal: No joint swelling or deformities Diagnostic Data Last Recorded Lab Results: 03/15/[id number]/[id number] Additional Plan 54 years old female presented to the ER for evaluation of epigastric pain # acute cholecystitis: Status post cholecystectomy. # hypokalemia: Replace per protocol #code status: Full code Date of Service: Mar 15, 2025 Billing Provider: ROSEMARIE DENIS MD Common Visit Codes: [id number] INP/OBS CARE (MOD) ROSEMARIE DENIS MD Mar 15, 2025 17:36
[2025-03-15] MEDS: K and/or MAG REPLACEMENT MC SCH (20:00)
[2025-03-15] MEDS: potassium Cl 20 mEq SR tablet PO PRN (22:09)
[2025-03-16 02:00] VITALS: BP 116/72; PULSE 83; RESP 18; TEMP 98.2; O2SAT 95
[2025-03-16 05:00] VITALS: BP 95/59; PULSE 75; RESP 16; TEMP 97.7; O2SAT 98
[2025-03-16 06:10] LABS: CREATININE 0.62 MG/DL (0.40-0.90); TOTAL CARBON DIOXIDE 24.8 MMOL/L (24-32); eCRCL 90 ML/MIN; eGFR > 90 ML/MIN
[2025-03-16 06:12] LABS: MEAN PLATELET VOLUME 8.3 FL (7.4-10.4); RED CELL DISTRIBUTION WIDTH 13.5 % (11.5-14.5)
[2025-03-16] MEDS ORDERED: HYDR-3964 PO (06:59)
--- NOTE | 2025-03-16 07:13 | DISCHARGE SUMMARY ---
Discharge Summary Providers to CC CC: JUSTO SAHNI MD ~ Discharge Summary Admission Diagnosis: Symptomatic cholelithiasis, acute cholecystitis Hospital Course DATE OF ADMISSION: March 15, 2025 DATE OF DISCHARGE: March 16, 2025 Discharge Diagnosis\Comment: Symptomatic cholelithiasis Intra-abdominal adhesions Operations\Procedures: Robotic assisted, laparoscopic enterolysis Robotic assisted, laparoscopic cholecystectomy Consultants: Justo Sahni MD [facility] Hospitalist service Complications: None Condition on DC: Stable New Medications: Hydrocodone Bit/Acetaminophen (Hydrocodon-Acetaminophen 5-325) 5 Mg-325 Mg Tablet 1 TAB PO Q4H PRN for MODERATE PAIN 4-6 for 5 Days, #30 TAB Continued Medications: Cholecalciferol (Vitamin D) 2,000 Unit Tablet 5000 INTLU PO DAILY, TAB 0 Refills Estradiol (Estradiol) 0.06 Mg/24 Hour Patch.tdwk 1 PATCH TD Q72H for 28 Days, #4 PATCH 0 Refills Lactobacillus Acidophilus (Probiotic) 1 Each Capsule 1 EACH PO DAILY, CAP Multivitamin (Multi Vitamin Daily) 1 Each Tablet 1 EACH PO DAILY, TAB Progesterone,Micronized (Progesterone) 100 Mg Capsule 100 MG PO, CAP Tirzepatide (Zepbound) 5 Mg/0.5 Ml Vial 5 SQ Q7D Discharge Summary: Patient was admitted by the hospitalist service following a recurrent episode of epigastric and right upper quadrant pain. She has had similar symptoms for the past eight years with negative workup thus far. Ultrasound on admission showed cholelithiasis with sonographic Lambert's sign consistent with the acute cholecystitis versus intractable symptomatic cholelithiasis. She was taken to the operating room where she was found to have significant intra-abdominal adhesions related to liver trauma as a pediatric patient. Ultimately, successful cholecystectomy was performed laparoscopically and patient was admitted for overnight observation. On the morning following surgery, she met all discharge criteria and was discharged home. *Problems/Diagnosis: (1) Acute calculous cholecystitis Status: Acute Total Time Spent on D/C: Up to 30 Minutes Counseling Services Smoking & Tobacco Cessation: N/A JUSTO SAHNI MD Mar 16, 2025 07:13
[2025-03-16] MEDS: HYDROcodone/acetaminophen 5mg/325mg tablet PO PRN (10:55)
[2025-03-16 11:09] VITALS: BP 131/71; PULSE 81; RESP 16; TEMP 98.6; O2SAT 97
--- NOTE | 2025-03-16 12:28 | DISCHARGE SUMMARY ---
Discharge Summary Providers to CC ~ Discharge Summary Admission Diagnosis: Symptomatic cholelithiasis, acute cholecystitis Hospital Course DATE OF ADMISSION: 03/15/2025 DATE OF DISCHARGE:03/16/2025 Discharge Diagnosis\Comment: Cholelithiasis and acute cholecysitis Operations\Procedures: Cholecystectomy Consultants: Justo Espinoza MD Complications: None Condition on DC: Stable Discharge Summary: Patient discharged by Dr. Justo Espinoza . Please refer to Tyson's discharge summary for further details. 54 years old female presented to the ER for evaluation of right upper quadrant and epigastric pain. Patient was diagnosed with a cholelithiasis and acute cholecystitis. She underwent cholecystectomy in his done well postoperatively. Patient has been discharged by Dr. Espinoza Discharge exam: Examined the patient on the day of discharge. Her has been is at the bedside. She is ambulatory without assistance HEENT normocephalic atraumatic extraocular movements are intact Neck supple, no JVD Chest: Clear to auscultation, no wheezes crackles rhonchi Heart: Regular rate rhythm, no murmur or gallop rub Abdomen is soft tender as expected. no organomegaly Extremities no cyanosis clubbing or edema Neuro exam nonfocal. *Problems/Diagnosis: (1) Acute calculous cholecystitis Status: Acute Total Time Spent on D/C: Up to 30 Minutes Date of Service: Mar 16, 2025 Billing Provider: ROSEMARIE DENIS MD Common Visit Codes: 16259-[id number] INP/OBS CARE(MOD) ROSEMARIE DENIS MD Mar 16, 2025 10:30
--- NOTE | 2025-03-18 09:55 | PATHOLOGY REPORT ---
[facility] [address] [place] [address] SURGICAL PATHOLOGY REPORT CaseNumber: [id number] Surgeon:Justo Espinoza M.D. CLINICAL INFORMATION CLINICAL INFORMATION: Not provided. DIAGNOSIS DIAGNOSIS: GALLBLADDER, ROBOTIC-ASSISTED LAPAROSCOPIC FLORINA - MILD CHOLECYSTITIS WITH FEATURES OF CHRONICITY AND CHOLELITHIASIS - NO DYSPLASIA OR MALIGNANCY MICROSCOPIC DESCRIPTION MICROSCOPIC DESCRIPTION: Performed. GROSS DESCRIPTION GROSS DESCRIPTION: Received in a container of formalin labeled with the patient's name, number, and "gallbladder" is an intact gallbladder which measures 5.5 cm long by 3 cm in diameter. The serosa is smooth and dobson. The surgical bed is unremarkable. Sectioning reveals a moderate amount of viscous dark green bile and a 3.5 cm aggregate of irregularly shaped yellow stones which measure up to 0.2 cm. The mucosa is intact with scattered yellow flecks present. The wall of the gallbladder measures up to 0.3 cm thick. Maxillofacial Prosthodontist sections of the neck and wall of the gallbladder are submitted as A1.The time at which the specimen was removed was 161. The time at which the specimen was placed in formalin was 161. ([facility]) Electronically signed by: Eber Lopez M.D. 03/18/2025 9:23:00 AM
== END 2025-03-16 11:35 | disposition home or self-care (01) | DRG 419 ==
LOC: ER 02:47 → ED HOLD 10:25 → EDBEDREQ 12:18 → SUR 3N 19:22
PROVIDERS: ADMIT Internal Medicine; ATTEND Internal Medicine
PROC: 0DNU4ZZ Release Omentum, Percutaneous Endoscopic Approach (ICD-10-PCS; 2025-03-15)
PROC: 0DNL4ZZ Release Transverse Colon, Percutaneous Endoscopic Approach (ICD-10-PCS; 2025-03-15)
PROC: 0FN04ZZ Release Liver, Percutaneous Endoscopic Approach (ICD-10-PCS; 2025-03-15)
PROC: 8E0W4CZ Robotic Assisted Procedure of Trunk Region, Percutaneous Endoscopic Approach (ICD-10-PCS; 2025-03-15)
PROC: BF121ZZ Fluoroscopy of Gallbladder using Low Osmolar Contrast (ICD-10-PCS; 2025-03-15)
PROC: 0FT44ZZ Resection of Gallbladder, Percutaneous Endoscopic Approach (ICD-10-PCS; principal; 2025-03-15 15:00)
DX: K80.00 Calculus of gallbladder with acute cholecystitis without obstruction (principal); K66.0 Peritoneal adhesions (postprocedural) (postinfection); N18.2 Chronic kidney disease, stage 2 (mild); E87.6 Hypokalemia; Z87.891 Personal history of nicotine dependence; Z79.899 Other long term (current) drug therapy
CPT/HCPCS: 99285; Z7506; Z7508; 36415; 76700; 80048; 80053; 80076; 80305; 80320; 81003; 81025; 83690; 83735; 85025; 87081; 93005; A4215; A4618; A7000; G0378; J0694; J1100; J2003; J2250; J2270; J2405; J2704; J2710; J3010; J3490; J7030; J7120